=== PATIENT | female | born 1990 | race African-American/Black ===

== ENCOUNTER 2016-09-09 16:43 | Inpatient (IN) | payer OTHER ==
[2016-09-09] MEDS ORDERED: ACETAMINOPHEN 325 MG TABLET PO PRN (16:58)
[2016-09-09] MEDS ORDERED: NORMAL SALINE 250 ML IV PRN ×2 (17:04)
--- NOTE | 2016-09-09 17:14 | PDOC H&P ---
History of Present Illness Admission Date/PCP: 09/09/16 16:43 Leilani Collin anemia Patient complains of: fatigue History of Present Illness: DELORES MAGALLANES is a 25 year old female pt came yesterday with c/o feeling tired and not feeling well and pt h/h was 5.5 pt also have ongoing problem with anemia and see dr garrett out pt and dr calle pt suppose to have control for her fibroid but pt do not want when sh saw dr garrett pt also see dr calle and suppose to have iron tranfusion but pt co pay was high and pt also did not take iron tab pt denied any dizziness/no chest pain Past Medical History Hematology: Reports: Anemia Social History Smoking Status: Never Smoker Frequency of Alcohol Use: None Hx Recreational Drug Use: No Family History Family History: Reviewed & Not Pertinent Parental Family History Reviewed: Yes Children Family History Reviewed: Yes Sibling(s) Family History Reviewed.: Yes Medication/Allergy Home Medications: Polyethylene Glycol 3350 [Miralax Powder 17 gm/Packet] 1 packet PO DAILY #1 pkg 03/05/16 Review of Systems Constitutional: PRESENT: fatigue, weakness. ABSENT: chills, fever(s), headache( s), weight gain, weight loss Eyes: ABSENT: visual disturbances Ears: ABSENT: hearing changes Cardiovascular: ABSENT: chest pain, dyspnea on exertion, edema, orthropnea, palpitations Respiratory: ABSENT: cough, hemoptysis Gastrointestinal: ABSENT: abdominal pain, constipation, diarrhea, hematemesis, hematochezia, nausea, vomiting Genitourinary: PRESENT: other - heavy menstrul peroid and fibroid. ABSENT: dysuria, hematuria Musculoskeletal: ABSENT: joint swelling Integumentary: ABSENT: rash, wounds Neurological: ABSENT: abnormal gait, abnormal speech, confusion, dizziness, focal weakness, syncope Psychiatric: ABSENT: anxiety, depression, homidical ideation, suicidal ideation Endocrine: ABSENT: cold intolerance, heat intolerance, menstrual abnormalities, polydipsia, polyuria Hematologic/Lymphatic: ABSENT: easy bleeding, easy bruising, lymphadenopathy Physical Exam General appearance: PRESENT: no acute distress, well-developed, well-nourished Head exam: PRESENT: atraumatic, normocephalic Eye exam: PRESENT: conjunctiva pale, EOMI, PERRLA. ABSENT: scleral icterus Ear exam: PRESENT: normal external ear exam Mouth exam: PRESENT: moist, tongue midline Neck exam: PRESENT: full ROM. ABSENT: carotid bruit, JVD, lymphadenopathy, thyromegaly Cardiovascular exam: PRESENT: RRR. ABSENT: diastolic murmur, rubs, systolic murmur Pulses: PRESENT: normal dorsalis pedis pul, +2 pedal pulses bilateral Vascular exam: PRESENT: normal capillary refill GI/Abdominal exam: PRESENT: normal bowel sounds, soft. ABSENT: distended, guarding, mass, organolmegaly, rebound, tenderness Rectal exam: PRESENT: deferred Neurological exam: PRESENT: alert, awake, oriented to person, oriented to place , oriented to time, oriented to situation, CN II-XII grossly intact. ABSENT: motor sensory deficit Psychiatric exam: PRESENT: appropriate affect, normal mood. ABSENT: homicidal ideation, suicidal ideation Skin exam: PRESENT: dry, intact, warm. ABSENT: cyanosis, rash Assessment & Plan - Diagnosis (1) Anemia Qualifiers: Anemia type: iron deficiency Iron deficiency anemia type: chronic blood loss Qualified Code(s): D50.0 - Iron deficiency anemia secondary to blood loss (chronic) Is this a current diagnosis for this admission?: YesPlan: admit pt in [facility] d/w pt and faimily and agree for blood tranfusion consulr dr calle for furhter evaution (2) Fatigue Is this a current diagnosis for this admission?: YesPlan: from severe anemia (3) Uterine fibroid Qualifiers: Uterine leiomyoma location: unspecified location Qualified Code(s): D25.9 - Leiomyoma of uterus, unspecified Is this a current diagnosis for this admission?: YesPlan: consult motion picture film examiner - Time Time Spent: 30 to 50 Minutes Medications reviewed and adjusted accordingly: Yes Anticipated discharge: Home Within: within 24 hours - Inpatient Certification Medical Necessity: Failure to Improve With Outpatient Therapy, Other - Plan Summary Plan Summary: admit in [facility] blood /iron tranfusion
[2016-09-09 18:15] LABS: HEMATOCRIT 20.4 % (36.0-47.0); HGB HCT DIFFERENCE -3.6; MEAN CORPUSCULAR HEMOGLOBIN 14.3 pg (27.0-33.4); MEAN CORPUSCULAR HGB CONC 27.6 g/dL (32.0-36.0); RED BLOOD COUNT 3.92 10^6/uL (3.72-5.28); RED CELL DISTRIBUTION WIDTH 20.1 % (11.5-14.0); WHITE BLOOD COUNT 2.9 10^3/uL (4.0-10.5)
[2016-09-09 18:19] LABS: ANION GAP 9 (5-19); BLOOD UREA NITROGEN 7 mg/dL (7-20); CARBON DIOXIDE 28 mmol/L (22-30); CHLORIDE 106 mmol/L (98-107); CREATININE RESULT 0.76 mg/dL (0.52-1.25); GLUCOSE 85 mg/dL (75-110); POTASSIUM 4.2 mmol/L (3.6-5.0); SODIUM 143.4 mmol/L (137-145)
[2016-09-09 18:36] LABS: BASOPHILS % (MANUAL) 1 % (0-2); EOSINOPHILS % (MANUAL) 2 % (0-6); LYMPHOCYTES % (MANUAL) 50 % (13-45); TOTAL CELLS COUNTED 100
[2016-09-09 18:39] LABS: ANISOCYTOSIS 2+; HYPOCHROMASIA 3+; MICROCYTOSIS 4+; OVALOCYTES 1+; POIKILOCYTOSIS 2+; SCHISTOCYTES SLIGHT; TEAR DROP CELLS SLIGHT; TOXIC GRANULATION SLIGHT
[2016-09-09 18:40] LABS: MEAN CORPUSCULAR VOLUME 52 fl (80-97)
[2016-09-09 18:42] LABS: HEMOGLOBIN 5.6 g/dL (12.0-15.5)
[2016-09-09 18:55] LABS: FERRITIN 3.48 ng/mL (6.2-137.0)
[2016-09-09 19:25] LABS: FOLATE 3.28 ng/mL (>2.76)
[2016-09-10 08:02] LABS: HEMATOCRIT 27.2 % (36.0-47.0); MEAN CORPUSCULAR HEMOGLOBIN 18.5 pg (27.0-33.4); RED BLOOD COUNT 4.55 10^6/uL (3.72-5.28); RED CELL DISTRIBUTION WIDTH 31.2 % (11.5-14.0); WHITE BLOOD COUNT 2.9 10^3/uL (4.0-10.5)
--- NOTE | 2016-09-10 08:23 | PDOC PROGRESS REPORT ---
Subjective Progress Note for:: 09/10/16 Subjective:: pt is doing well recived 2 unit blood nocp no sob Physical Exam Vital Signs: Temp Pulse Resp BP Pulse Ox 98.6 F 75 16 103/60 99 09/10/16 05:30 09/10/16 05:30 09/10/16 05:30 09/10/16 05:30 09/10/16 05:30 Intake & Output 09/09/16 09/10/16 09/11/16 06:59 06:59 06:59 Intake Total 600 Balance 600 Weight 54 kg General appearance: PRESENT: no acute distress, well-developed, well-nourished Head exam: PRESENT: atraumatic, normocephalic Eye exam: PRESENT: conjunctiva pale, EOMI, PERRLA. ABSENT: scleral icterus Ear exam: PRESENT: normal external ear exam Mouth exam: PRESENT: moist, tongue midline Neck exam: PRESENT: full ROM. ABSENT: carotid bruit, JVD, lymphadenopathy, thyromegaly Cardiovascular exam: PRESENT: RRR. ABSENT: diastolic murmur, rubs, systolic murmur Pulses: PRESENT: normal dorsalis pedis pul, +2 pedal pulses bilateral Vascular exam: PRESENT: normal capillary refill GI/Abdominal exam: PRESENT: normal bowel sounds, soft. ABSENT: distended, guarding, mass, organolmegaly, rebound, tenderness Rectal exam: PRESENT: deferred Neurological exam: PRESENT: alert, awake, oriented to person, oriented to place , oriented to time, oriented to situation, CN II-XII grossly intact. ABSENT: motor sensory deficit Psychiatric exam: PRESENT: appropriate affect, normal mood. ABSENT: homicidal ideation, suicidal ideation Skin exam: PRESENT: dry, intact, warm. ABSENT: cyanosis, rash Results Laboratory Results: 09/09/16 17:35 09/09/16 09/09/16 09/09/16 17:35 17:35 17:35 WBC 2.9 L RBC 3.92 Hgb 5.6 L Hct 20.4 L MCV 52 L MCH 14.3 L MCHC 27.6 L RDW 20.1 H Plt Count 128 L Seg Neutrophils % Not Reportable Lymphocytes % Not Reportable Monocytes % Not Reportable Eosinophils % Not Reportable Basophils % Not Reportable Absolute Neutrophils Not Reportable Absolute Lymphocytes Not Reportable Absolute Monocytes Not Reportable Absolute Eosinophils Not Reportable Absolute Basophils Not Reportable Retic Count (auto) 0.68 Absolute Retic 0.027 L Sodium 143.4 Potassium 4.2 Chloride 106 Carbon Dioxide 28 Anion Gap 9 BUN 7 Creatinine 0.76 Est GFR ( Amer) > 60 Est GFR (Non-Af Amer) > 60 Glucose 85 Calcium 9.0 Iron 14 L TIBC 442 % Saturation 3 Ferritin 3.48 L Vitamin B12 225.0 L Folate 3.28 Blood Type A POSITIVE Antibody Screen NEGATIVE Assessment & Plan - Diagnosis (1) Anemia Qualifiers: Anemia type: iron deficiency Iron deficiency anemia type: chronic blood loss Qualified Code(s): D50.0 - Iron deficiency anemia secondary to blood loss (chronic) Is this a current diagnosis for this admission?: YesPlan: s/p blood tranfusion f/u with dr calle (2) Fatigue Is this a current diagnosis for this admission?: YesPlan: from severe anemia (3) Uterine fibroid Qualifiers: Uterine leiomyoma location: unspecified location Qualified Code(s): D25.9 - Leiomyoma of uterus, unspecified Is this a current diagnosis for this admission?: YesPlan: consult obstetrician gynecologist - Time Time Spent with patient: Less than 15 minutes Medications reviewed and adjusted accordingly: Yes Anticipated discharge: Home Within: within 24 hours - Inpatient Certification Medical Necessity: Failure to Improve With Outpatient Therapy
[2016-09-10 08:36] LABS: HEMOGLOBIN 8.4 g/dL (12.0-15.5); MEAN CORPUSCULAR VOLUME 60 fl (80-97)
[2016-09-10 08:41] LABS: BASOPHILS % (MANUAL) 0 % (0-2); EOSINOPHILS % (MANUAL) 0 % (0-6); LYMPHOCYTES % (MANUAL) 38 % (13-45); NUCLEATED RED BLOOD CELLS 1 /100 WBC (0); TOTAL CELLS COUNTED 100
[2016-09-10 08:42] LABS: ANISOCYTOSIS 4+; HYPOCHROMASIA 3+; MICROCYTOSIS 4+; OVALOCYTES 1+; POIKILOCYTOSIS 1+; POLYCHROMASIA SLIGHT; ROULEAUX SLIGHT; SCHISTOCYTES SLIGHT; TOXIC GRANULATION SLIGHT
--- NOTE | 2016-09-10 08:56 | PDOC CONSULTATION ---
Consultation Consult Date: 09/10/16 Attending physician:: LUC OWUSU Consult reason:: Anemia History of Present Illness Admission Date/PCP: 09/09/16 16:58 Leilani Polanco Patient complains of: Weakness, shortness of breath, anemia History of Present Illness: 25-year-old female who was seen as an outpatient, does have history of severe iron and B12 deficiency, secondary to fibroids and heavy menses, she comes in with hemoglobin of 5.6, severely symptomatically. CT units of packed red blood cells, she also had iron and B-12 testing, saturation was able to be calculated , ferritin was 3, B12 level was low at 200, she feels better today. She still has considerable fatigue. Past Medical History Hematology: Reports: Anemia Social History Smoking Status: Unknown if Ever Smoked Frequency of Alcohol Use: None Hx Recreational Drug Use: No Drugs: None Family History Family History: Reviewed & Not Pertinent Parental Family History Reviewed: Yes Children Family History Reviewed: Yes Sibling(s) Family History Reviewed.: Yes Medication/Allergy Home Medications: Polyethylene Glycol 3350 [Miralax Powder 17 gm/Packet] 1 packet PO DAILY #1 pkg 03/05/16 Allergies/Adverse Reactions: latex Allergy (Verified 09/09/16 17:40) IV contrast Allergy (Intermediate, Uncoded 09/09/16 17:41) Tachycardia Review of Systems Constitutional: PRESENT: fatigue Cardiovascular: PRESENT: chest pain, dyspnea on exertion, palpitations Gastrointestinal: ABSENT: abdominal pain, constipation, diarrhea, hematemesis, hematochezia, nausea, vomiting Musculoskeletal: ABSENT: joint swelling Neurological: ABSENT: abnormal gait, abnormal speech, confusion, dizziness, focal weakness, syncope Physical Exam Vital Signs: Temp Pulse Resp BP Pulse Ox 98.6 F 75 16 103/60 99 09/10/16 05:30 09/10/16 05:30 09/10/16 05:30 09/10/16 05:30 09/10/16 05:30 Intake & Output 09/09/16 09/10/16 09/11/16 06:59 06:59 06:59 Intake Total 850 Balance 850 Weight 54 kg General appearance: PRESENT: no acute distress, well-developed, well-nourished Head exam: PRESENT: atraumatic, normocephalic Eye exam: PRESENT: conjunctiva pink, EOMI, PERRLA. ABSENT: scleral icterus Ear exam: PRESENT: normal external ear exam Mouth exam: PRESENT: moist, tongue midline Neck exam: ABSENT: carotid bruit, JVD, lymphadenopathy, thyromegaly Respiratory exam: PRESENT: clear to auscultation maribeth. ABSENT: rales, rhonchi, wheezes Cardiovascular exam: PRESENT: RRR. ABSENT: diastolic murmur, rubs, systolic murmur Pulses: PRESENT: normal dorsalis pedis pul Vascular exam: PRESENT: normal capillary refill GI/Abdominal exam: PRESENT: normal bowel sounds, soft. ABSENT: distended, guarding, mass, organolmegaly, rebound, tenderness Rectal exam: PRESENT: deferred Extremities exam: PRESENT: full ROM. ABSENT: calf tenderness, clubbing, pedal edema Neurological exam: PRESENT: alert, awake, oriented to person, oriented to place , oriented to time, oriented to situation, CN II-XII grossly intact. ABSENT: motor sensory deficit Psychiatric exam: PRESENT: appropriate affect, normal mood. ABSENT: homicidal ideation, suicidal ideation Skin exam: PRESENT: dry, intact, warm. ABSENT: cyanosis, rash Results Laboratory Results: 09/10/16 07:52 09/09/16 17:35 09/09/16 09/09/16 09/09/16 17:35 17:35 17:35 WBC 2.9 L RBC 3.92 Hgb 5.6 L Hct 20.4 L MCV 52 L MCH 14.3 L MCHC 27.6 L RDW 20.1 H Plt Count 128 L Seg Neutrophils % Not Reportable Lymphocytes % Not Reportable Monocytes % Not Reportable Eosinophils % Not Reportable Basophils % Not Reportable Absolute Neutrophils Not Reportable Absolute Lymphocytes Not Reportable Absolute Monocytes Not Reportable Absolute Eosinophils Not Reportable Absolute Basophils Not Reportable Retic Count (auto) 0.68 Absolute Retic 0.027 L Sodium 143.4 Potassium 4.2 Chloride 106 Carbon Dioxide 28 Anion Gap 9 BUN 7 Creatinine 0.76 Est GFR ( Amer) > 60 Est GFR (Non-Af Amer) > 60 Glucose 85 Calcium 9.0 Iron 14 L TIBC 442 % Saturation 3 Ferritin 3.48 L Vitamin B12 225.0 L Folate 3.28 Blood Type A POSITIVE Antibody Screen NEGATIVE 09/10/16 07:52 WBC 2.9 L RBC 4.55 Hgb 8.4 L D Hct 27.2 L MCV 60 L D MCH 18.5 L MCHC 31.0 L RDW 31.2 H Plt Count 103 L Seg Neutrophils % Not Reportable Lymphocytes % Not Reportable Monocytes % Not Reportable Eosinophils % Not Reportable Basophils % Not Reportable Absolute Neutrophils Not Reportable Absolute Lymphocytes Not Reportable Absolute Monocytes Not Reportable Absolute Eosinophils Not Reportable Absolute Basophils Not Reportable Retic Count (auto) Absolute Retic Sodium Potassium Chloride Carbon Dioxide Anion Gap BUN Creatinine Est GFR ( Amer) Est GFR (Non-Af Amer) Glucose Calcium Iron TIBC % Saturation Ferritin Vitamin B12 Folate Blood Type Antibody Screen Assessment & Plan - Diagnosis (1) Anemia Qualifiers: Anemia type: iron deficiency Iron deficiency anemia type: chronic blood loss Qualified Code(s): D50.0 - Iron deficiency anemia secondary to blood loss (chronic) Is this a current diagnosis for this admission?: YesPlan: Iron deficiency secondary to have heavy menses, IV iron plan today, await CBC, we will discuss further whether transfusion needed. (2) B12 deficiency anemia Qualifiers: Vitamin B12 deficiency anemia type: other dietary B12 deficiency Qualified Code(s): D51.3 - Other dietary vitamin B12 deficiency anemia Plan: Plan for B12 supplementation, we'll need IM shots. - Time Time Spent: 50 to 70 Minutes Critical Time spent with patient: 15-24 minutes - Inpatient Certification Based on my medical assessment, after consideration of the patient's comorbidities, presenting symptoms, or acuity I expect that the services needed warrant INPATIENT care.: Yes I certify that my determination is in accordance with my understanding of Medicare's requirements for reasonable and necessary INPATIENT services [42 CFR 412.3e].: Yes Medical Necessity: Failure to Improve With Outpatient Therapy, Other - Need for blood
[2016-09-10] MEDS ORDERED: FERUMOXYTOL (NON-ESRD) 510 MG/NS 100 ML IV ONE ×2 (10:00)
[2016-09-10] MEDS ORDERED: CYANOCOBALAMIN (VITAMIN B-12) INJ 1000 MCG/1 ML VIAL IM ONE (10:30)
[2016-09-11 07:46] LABS: ABSOLUTE MONOCYTES (AUTO) 0.3 10^3/uL (0.1-1.4); ABSOLUTE NEUT (AUTO) 1.2 10^3/uL (1.7-8.2); BASOPHILS % (AUTO) 0.8 % (0-2); EOSINOPHILS % (AUTO) 0.9 % (0-6); HEMATOCRIT 27.5 % (36.0-47.0); HEMOGLOBIN 8.5 g/dL (12.0-15.5); LYMPHOCYTES % (AUTO) 56.8 % (13-45); MEAN CORPUSCULAR HEMOGLOBIN 18.4 pg (27.0-33.4); MEAN CORPUSCULAR HGB CONC 30.9 g/dL (32.0-36.0); MEAN CORPUSCULAR VOLUME 60 fl (80-97); MONOCYTES % (AUTO) 7.1 % (3-13); RED BLOOD COUNT 4.62 10^6/uL (3.72-5.28); RED CELL DISTRIBUTION WIDTH 31.9 % (11.5-14.0); SEGMENTED NEUTROPHILS % (AUTO) 34.4 % (42-78); WHITE BLOOD COUNT 3.5 10^3/uL (4.0-10.5)
--- NOTE | 2016-09-11 08:19 | PDOC DISCHARGE SUMMARY ---
General - Admit/Disc Date/PCP Admission Date/Primary Care Provider: 09/09/16 16:58 Leilani Polanco Discharge Date: 09/11/16 - Discharge Diagnosis (1) Anemia Is this a current diagnosis for this admission?: YesSummary: Most likely from the uterine fibroids. This post blood transfusion and iron transfusions. 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 - Additional Information Discharge Diet: Regular Discharge Activity: Activity As Tolerated History of Present Illness History of Present Illness: DELORES MAGALLANES is a 25 year old female pt came yesterday with c/o feeling tired and not feeling well and pt h/h was 5.5 pt also have ongoing problem with anemia and see dr garrett out pt and dr calle pt suppose to have control for her fibroid but pt do not want when sh saw dr garrett pt also see dr calle and suppose to have iron tranfusion but pt co pay was high and pt also did not take iron tab pt denied any dizziness/no chest pain Hospital Course Hospital Course: This is a 25-year-old females with the ongoing problem with the anemia due to the most likely a uterine fibroid and currently see Dr. Beal outpatient center but unable to take any oral contraceptive pills due to the patient's wounds to conceive and the patient's continues to bleed very heavily her menstrual period. Is also see the seat cover maker as outpatient and unable to get the iron transfusions due to the high co-pay should also see andres Hendrickson is outpatients and most likely a problem coming from the uterine fibroid. Patient' s admitting in the hospital because of hemoglobin was 5.5 and patient received 2 units of blood and also iron transfusions and seen by the seat cover maker. Is feeling much better and patient's walk around the hallway and by mouth intake is good patient's discharge home with the stable condition and follow as outpatients with the seat cover maker and account general manager and continues to take the iron tablets Physical Exam Vital Signs: Temp Pulse Resp BP Pulse Ox 97.8 F 67 17 105/46 L 100 09/11/16 04:27 09/11/16 04:27 09/11/16 04:27 09/11/16 04:27 09/11/16 04:27 Intake & Output 09/10/16 09/11/16 09/12/16 06:59 06:59 06:59 Intake Total 850 720 Balance 850 720 Weight 54 kg 55.4 kg General appearance: PRESENT: no acute distress, well-developed, well-nourished Head exam: PRESENT: atraumatic, normocephalic Eye exam: PRESENT: conjunctiva pink, EOMI, PERRLA. ABSENT: scleral icterus Ear exam: PRESENT: normal external ear exam Mouth exam: PRESENT: moist, tongue midline Neck exam: PRESENT: full ROM. ABSENT: carotid bruit, JVD, lymphadenopathy, thyromegaly Cardiovascular exam: PRESENT: RRR. ABSENT: diastolic murmur, rubs, systolic murmur Pulses: PRESENT: normal dorsalis pedis pul, +2 pedal pulses bilateral Vascular exam: PRESENT: normal capillary refill GI/Abdominal exam: PRESENT: normal bowel sounds, soft. ABSENT: distended, guarding, mass, organolmegaly, rebound, tenderness Rectal exam: PRESENT: deferred Neurological exam: PRESENT: alert, awake, oriented to person, oriented to place , oriented to time, oriented to situation, CN II-XII grossly intact. ABSENT: motor sensory deficit Psychiatric exam: PRESENT: appropriate affect, normal mood. ABSENT: homicidal ideation, suicidal ideation Skin exam: PRESENT: dry, intact, warm. ABSENT: cyanosis, rash Results Laboratory Results: 09/09/16 17:35 09/09/16 09/10/16 17:35 07:52 WBC 2.9 L 2.9 L RBC 3.92 4.55 Hgb 5.6 L 8.4 L D Hct 20.4 L 27.2 L MCV 52 L 60 L D MCH 14.3 L 18.5 L MCHC 27.6 L 31.0 L RDW 20.1 H 31.2 H Plt Count 128 L 103 L Seg Neutrophils % Not Reportable Lymphocytes % Not Reportable Monocytes % Not Reportable Eosinophils % Not Reportable Basophils % Not Reportable Absolute Neutrophils Not Reportable Absolute Lymphocytes Not Reportable Absolute Monocytes Not Reportable Absolute Eosinophils Not Reportable Absolute Basophils Not Reportable Retic Count (auto) 0.68 Absolute Retic 0.027 L Plan Time Spent: Less than 30 Minutes - Continues to take iron tablets and follow outpatients Dr. Beal and follow dr calle Discussed with the patient and the family about all plan and agree
[2016-09-11 08:28] LABS: ANISOCYTOSIS 4+; HYPOCHROMASIA 2+; MICROCYTOSIS 4+; OVALOCYTES 2+; POIKILOCYTOSIS 2+; SCHISTOCYTES SLIGHT; TARGET CELLS SLIGHT
--- NOTE | 2016-09-11 08:38 | PDOC PROGRESS REPORT ---
Subjective Progress Note for:: 09/11/16 Subjective:: Patient feeling a lot better today Physical Exam Vital Signs: Temp Pulse Resp BP Pulse Ox 97.8 F 67 17 105/46 L 100 09/11/16 04:27 09/11/16 04:27 09/11/16 04:27 09/11/16 04:27 09/11/16 04:27 Intake & Output 09/10/16 09/11/16 09/12/16 06:59 06:59 06:59 Intake Total 850 720 Balance 850 720 Weight 54 kg 55.4 kg General appearance: PRESENT: no acute distress, well-developed, well-nourished Head exam: PRESENT: atraumatic, normocephalic Eye exam: PRESENT: conjunctiva pink, EOMI, PERRLA. ABSENT: scleral icterus Ear exam: PRESENT: normal external ear exam Mouth exam: PRESENT: moist, tongue midline Neck exam: ABSENT: carotid bruit, JVD, lymphadenopathy, thyromegaly Respiratory exam: PRESENT: clear to auscultation maribeth. ABSENT: rales, rhonchi, wheezes Cardiovascular exam: PRESENT: RRR. ABSENT: diastolic murmur, rubs, systolic murmur Pulses: PRESENT: normal dorsalis pedis pul Vascular exam: PRESENT: normal capillary refill GI/Abdominal exam: PRESENT: normal bowel sounds, soft. ABSENT: distended, guarding, mass, organolmegaly, rebound, tenderness Rectal exam: PRESENT: deferred Extremities exam: PRESENT: full ROM. ABSENT: calf tenderness, clubbing, pedal edema Neurological exam: PRESENT: alert, awake, oriented to person, oriented to place , oriented to time, oriented to situation, CN II-XII grossly intact. ABSENT: motor sensory deficit Psychiatric exam: PRESENT: appropriate affect, normal mood. ABSENT: homicidal ideation, suicidal ideation Skin exam: PRESENT: dry, intact, warm. ABSENT: cyanosis, rash Results Laboratory Results: 09/11/16 07:08 09/09/16 17:35 09/09/16 09/10/16 09/11/16 17:35 07:52 07:08 WBC 2.9 L 2.9 L 3.5 L RBC 3.92 4.55 4.62 Hgb 5.6 L 8.4 L D 8.5 L Hct 20.4 L 27.2 L 27.5 L MCV 52 L 60 L D 60 L MCH 14.3 L 18.5 L 18.4 L MCHC 27.6 L 31.0 L 30.9 L RDW 20.1 H 31.2 H 31.9 H Plt Count 128 L 103 L 103 L Seg Neutrophils % Not Reportable 34.4 L Lymphocytes % Not Reportable 56.8 H Monocytes % Not Reportable 7.1 Eosinophils % Not Reportable 0.9 Basophils % Not Reportable 0.8 Absolute Neutrophils Not Reportable 1.2 L Absolute Lymphocytes Not Reportable 2.0 Absolute Monocytes Not Reportable 0.3 Absolute Eosinophils Not Reportable 0.0 Absolute Basophils Not Reportable 0.0 Retic Count (auto) 0.68 Absolute Retic 0.027 L Assessment & Plan - Diagnosis (1) Anemia Qualifiers: Anemia type: iron deficiency Iron deficiency anemia type: chronic blood loss Qualified Code(s): D50.0 - Iron deficiency anemia secondary to blood loss (chronic) Is this a current diagnosis for this admission?: YesPlan: Secondary to iron and B12 deficiency, today we had a long discussion greater than 30 minutes about her current status of disease and next steps of care (2) B12 deficiency anemia Qualifiers: Vitamin B12 deficiency anemia type: other dietary B12 deficiency Qualified Code(s): D51.3 - Other dietary vitamin B12 deficiency anemia - Time Time Spent with patient: 25-34 minutes Critical Time spent with patient: 25-34 minutes Anticipated discharge: Home
[2016-09-11 09:26] VITALS: BP 103/60
[2016-09-11] MEDS ORDERED: CYANOCOBALAMIN (VITAMIN B-12) INJ 1000 MCG/1 ML VIAL IM SCH (10:00)
== END 2016-09-11 10:10 | disposition home or self-care (01) | DRG 812 ==
LOC: 2S 16:43 → UNDOADMIN 16:43 → 2S 16:52 → 2N 16:52
PROVIDERS: ADMIT Family Medicine; ATTEND Family Medicine
PROC: 30233N1 Transfusion of Nonautologous Red Blood Cells into Peripheral Vein, Percutaneous Approach (ICD-10-PCS; principal; 2016-09-10)
DX: D50.0 Iron deficiency anemia secondary to blood loss (chronic) (principal); D51.9 Vitamin B12 deficiency anemia, unspecified; N92.0 Excessive and frequent menstruation with regular cycle; R53.83 Other fatigue; D25.9 Leiomyoma of uterus, unspecified; Z91.041 Radiographic dye allergy status; Z91.040 Latex allergy status
CPT/HCPCS: 36415; 36430; 80048; 82607; 82728; 82746; 83540; 83550; 84466; 85025; 85045; 86850; 86900; 86901; 86920; J3420; P9016; Q0138

== ENCOUNTER 2016-12-24 09:02 | Outpatient (CLI) | payer OTHER ==
[~2016-12-24 09:02] MED LIST: FERRIC CARBOXYMALTOSE 750 MG in NORMAL SALINE 250 ML IV PRN; NORMAL SALINE 250 ML IV PRN
[2016-12-24 09:26] VITALS: BP 100/60
== END 2016-12-24 10:09 | disposition home or self-care (01) ==
LOC: II 09:02 → 5TH 09:03 → II 10:09
PROVIDERS: ATTEND Internal Medicine
PROC: 3E033GC Introduction of Other Therapeutic Substance into Peripheral Vein, Percutaneous Approach (ICD-10-PCS; principal; 2016-12-24)
DX: D50.8 Other iron deficiency anemias (principal); K90.9 Intestinal malabsorption, unspecified
CPT/HCPCS: 96365; J7050; J1439

== ENCOUNTER → 2017-01-23 | Outpatient (CLI) | payer OTHER ==
[2017-01-23 12:14] VITALS: BP 123/70
== END ==
LOC: II 11:28
PROVIDERS: ATTEND Internal Medicine
PROC: 3E043GC Introduction of Other Therapeutic Substance into Central Vein, Percutaneous Approach (ICD-10-PCS; principal; 2017-01-23)
DX: D50.8 Other iron deficiency anemias (principal); K90.9 Intestinal malabsorption, unspecified
CPT/HCPCS: 96365; J7050; J1439

== ENCOUNTER 2017-03-30 19:59 | Emergency (ER) | payer SELFPAY ==
--- NOTE | 2017-03-30 20:41 | ER Document Report ---
ED Medical Screen (RME) - General Chief Complaint: Vag Bleeding, +preg <12wks Stated Complaint: VAGINAL BLEEDING, Time Seen by Provider: 03/30/17 20:37 Notes: Patient presents with vaginal bleeding. The bleeding started tonight and is gradually slowing down. No clots. She states she believes she is about 8 weeks and has taken 2 urine tests at clinic. She has not had an ultrasound yet. This is her first . She has a history of anemia requiring transfusions. She states this is secondary to uterine fibroids. TRAVEL OUTSIDE OF THE [place] IN LAST 30 DAYS: No - Related Data Allergies/Adverse Reactions: latex Allergy (Verified 09/09/16 17:40) IV contrast Allergy (Intermediate, Uncoded 09/09/16 17:41) Tachycardia Past Medical History - General Last Menstrual Period: february 10, 2017 Renal/ Medical History: Denies: Hx Peritoneal Dialysis - Immunizations Immunizations up to date: Yes Hx Diphtheria, Pertussis, Tetanus Vaccination: Yes Physical Exam - Vital signs Vitals: Temp Pulse Resp BP Pulse Ox 97.7 F 68 16 172/72 H 99 03/30/17 20:22 03/30/17 20:22 03/30/17 20:22 03/30/17 20:22 03/30/17 20:22 Course - Vital Signs Vital signs: Temp Pulse Resp BP Pulse Ox 97.7 F 68 16 172/72 H 99 03/30/17 20:22 03/30/17 20:22 03/30/17 20:22 03/30/17 20:22 03/30/17 20:22
--- NOTE | 2017-03-30 21:08 | ER Document Report ---
ED GI/ - General Chief Complaint: Vag Bleeding, +preg <12wks Stated Complaint: VAGINAL BLEEDING, Time Seen by Provider: 03/30/17 20:37 Mode of Arrival: Ambulatory Information source: Patient Notes: Patient states that she is presently about 7-8 weeks and developed vaginal bleeding today. 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 Patient denies any urinary symptoms. Patient denies any pelvic pain. TRAVEL OUTSIDE OF THE [place] IN LAST 30 DAYS: No - HPI Patient complains to provider of: , Vaginal bleeding. 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 Associated symptoms: denies: Dysuria, Fever, Urinary hesitancy, Urinary frequency, Urinary retention, Urinary urgency, Vaginal discharge Exacerbated by: Denies Relieved by: Denies Recently seen / treated by doctor: No - Related Data Allergies/Adverse Reactions: latex Allergy (Verified 09/09/16 17:40) IV contrast Allergy (Intermediate, Uncoded 09/09/16 17:41) Tachycardia Past Medical History - General Information source: Patient Last Menstrual Period: february 10, 2017 - Social History Smoking Status: Never Smoker Frequency of alcohol use: None Drug Abuse: None 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 Denies: Hx Peritoneal Dialysis Surgical Hx: Negative - Immunizations Immunizations up to date: Yes Hx Diphtheria, Pertussis, Tetanus Vaccination: Yes Review of Systems - Review of Systems Constitutional: No symptoms reported. denies: Fever, Recent illness EENT: No symptoms reported Cardiovascular: No symptoms reported Respiratory: No symptoms reported. denies: Cough Gastrointestinal: No symptoms reported. denies: Abdominal pain, Vomiting Genitourinary: No symptoms reported. denies: Dysuria Female Genitourinary: , Vaginal bleeding. denies: Vaginal discharge Musculoskeletal: No symptoms reported. denies: Back pain Skin: No symptoms reported Hematologic/Lymphatic: No symptoms reported Neurological/Psychological: No symptoms reported Physical Exam - Vital signs Vitals: Temp Pulse Resp BP Pulse Ox 97.7 F 68 16 172/72 H 99 03/30/17 20:22 03/30/17 20:22 03/30/17 20:22 03/30/17 20:22 03/30/17 20:22 Interpretation: No: Hypertensive Notes: VS transcribed into computer incorrectly, initial systolic BP should be recorded as 127. - General General appearance: Appears well, Alert In distress: None - HEENT Head: Normocephalic Eyes: Normal Conjunctiva: Normal Nasal: Normal Mouth/Lips: Normal Mucous membranes: Normal Neck: Normal, Supple. No: Lymphadenopathy - Respiratory Respiratory status: No respiratory distress Chest status: Nontender Breath sounds: Normal Chest palpation: Normal - Cardiovascular Rhythm: Regular Heart sounds: S1 appreciated, S2 appreciated Murmur: No - Abdominal Inspection: Gravid female Distension: No distension Bowel sounds: Normal Tenderness: Nontender Organomegaly: No organomegaly - Back Back: Normal, Nontender. No: CVA tenderness - Extremities General upper extremity: Normal inspection, Normal ROM General lower extremity: Normal inspection, Normal ROM - Neurological Neuro grossly intact: Yes Cognition: Normal Sullivan Coma Scale Eye Opening: Spontaneous Han Coma Scale Verbal: Oriented Han Coma Scale Motor: Obeys Commands Han Coma Scale Total: 15 - Psychological Associated symptoms: Normal affect, Normal mood - Skin Skin Temperature: Warm Skin Moisture: Dry Skin Color: Normal Course - Re-evaluation Re-evalutation: 03/31/17 Patient with a known history of uterine fibroids. Discussed results of patient' s ultrasound with patient. Patient advised that she will need to follow-up with her [facility] provider for further evaluation. Discussed pelvic rest until cleared by her OB. Patient verbalized understanding. 03/31/17 late entry: Patient's initial blood pressure was erroneously entered. Patient has not been hypertensive during entire ER stay - Vital Signs Vital signs: Temp Pulse Resp BP Pulse Ox 97.7 F 68 16 118/72 99 03/30/17 20:22 03/30/17 20:22 03/30/17 20:22 03/30/17 21:23 03/30/17 20:22 - Laboratory Result Diagrams: 03/30/17 20:56 03/30/17 20:56 Laboratory results interpreted by me: 03/30/17 03/30/17 03/30/17 20:49 20:56 20:56 MCV 77 L MCH 25.7 L RDW 20.0 H BUN 5 L Beta HCG, Quant 59160.00 H Urine Blood LARGE H 03/30/17 23:23 MCV MCH RDW BUN Beta HCG, Quant Urine Blood MODERATE H Labs- Entire Visit 03/30/17 03/30/17 03/30/17 20:49 20:56 20:56 WBC 4.4 RBC 4.89 Hgb 12.6 Hct 37.7 MCV 77 L MCH 25.7 L MCHC 33.4 RDW 20.0 H Plt Count 198 Seg Neutrophils % 52.4 Lymphocytes % 40.6 Monocytes % 5.3 Eosinophils % 1.2 Basophils % 0.5 Absolute Neutrophils 2.3 Absolute Lymphocytes 1.8 Absolute Monocytes 0.2 Absolute Eosinophils 0.1 Absolute Basophils 0.0 Sodium 137.2 Potassium 4.3 Chloride 102 Carbon Dioxide 25 Anion Gap 10 BUN 5 L Creatinine 0.66 Est GFR ( Amer) > 60 Est GFR (Non-Af Amer) > 60 Glucose 83 Calcium 9.7 Total Bilirubin 0.4 Direct Bilirubin 0.3 Indirect Bilirubin Not Reportable Neonat Total Bilirubin Not Reportable AST 17 ALT 18 Alkaline Phosphatase 46 Total Protein 7.3 Albumin 4.5 Beta HCG, Quant 08824.00 H Total Beta HCG POSITIVE Urine Color YELLOW Urine Appearance CLEAR Urine pH 6.0 Ur Specific [place] 1.005 Urine Protein NEGATIVE Urine Glucose (UA) NEGATIVE Urine Ketones NEGATIVE Urine Blood LARGE H Urine Nitrite NEGATIVE Urine Bilirubin NEGATIVE Urine Urobilinogen NEGATIVE Ur Leukocyte Esterase NEGATIVE Urine WBC (Auto) 2 Urine RBC (Auto) >182 Urine Bacteria (Auto) TRACE Squamous Epi Cells Auto 1 Urine Mucus (Auto) RARE Urine Ascorbic Acid NEGATIVE Blood Type Rhogam Indicated 03/30/17 03/30/17 22:22 23:23 WBC RBC Hgb Hct MCV MCH MCHC RDW Plt Count Seg Neutrophils % Lymphocytes % Monocytes % Eosinophils % Basophils % Absolute Neutrophils Absolute Lymphocytes Absolute Monocytes Absolute Eosinophils Absolute Basophils Sodium Potassium Chloride Carbon Dioxide Anion Gap BUN Creatinine Est GFR ( Amer) Est GFR (Non-Af Amer) Glucose Calcium Total Bilirubin Direct Bilirubin Indirect Bilirubin Neonat Total Bilirubin AST ALT Alkaline Phosphatase Total Protein Albumin Beta HCG, Quant Total Beta HCG Urine Color STRAW Urine Appearance CLEAR Urine pH 6.0 Ur Specific [place] 1.004 Urine Protein NEGATIVE Urine Glucose (UA) NEGATIVE Urine Ketones NEGATIVE Urine Blood MODERATE H Urine Nitrite NEGATIVE Urine Bilirubin NEGATIVE Urine Urobilinogen NEGATIVE Ur Leukocyte Esterase NEGATIVE Urine WBC (Auto) 1 Urine RBC (Auto) 0 Urine Bacteria (Auto) Squamous Epi Cells Auto 1 Urine Mucus (Auto) Urine Ascorbic Acid NEGATIVE Blood Type A POSITIVE Rhogam Indicated RHOGAM NOT INDICATED - Diagnostic Test Radiology reviewed: Reports reviewed Discharge - Discharge Clinical Impression: Vagina bleeding Uterine fibroid Qualifiers: Uterine leiomyoma location: unspecified location Qualified Code(s): D25.9 - Leiomyoma of uterus, unspecified Qualifiers: Weeks of gestation: less than 8 weeks Qualified Code(s): Z3A.01 - Less than 8 weeks gestation of Condition: Stable Disposition: HOME, SELF-CARE Instructions: Bleeding During Early ([facility]), Nitrofurantoin ([facility]), Urinary Tract Infection ([facility]) Additional Instructions: Return immediately for any new or worsening symptoms Followup with your primary care provider, call tomorrow to make a followup appointment Pelvic rest until cleared by your [facility] Follow-up with your [facility], call tomorrow for an appointment Prescriptions: Nitrofurantoin/Nitrofuran Mac [Macrobid 100 mg Capsule] 100 mg PO BID #6 capsule Referrals: LUC OWUSU MD [Primary Care Provider] - Follow up as needed EMMA QUIROZ MD [EMERITUS] - Follow up tomorrow
[2017-03-30 21:09] LABS: ABSOLUTE EOSINOPHILS # (AUTO) 0.1 10^3/uL (0.0-0.6); ABSOLUTE LYMPHOCYTES (AUTO) 1.8 10^3/uL (0.5-4.7); ABSOLUTE MONOCYTES (AUTO) 0.2 10^3/uL (0.1-1.4); ABSOLUTE NEUT (AUTO) 2.3 10^3/uL (1.7-8.2); BASOPHILS % (AUTO) 0.5 % (0-2); EOSINOPHILS % (AUTO) 1.2 % (0-6); HEMATOCRIT 37.7 % (36.0-47.0); HEMOGLOBIN 12.6 g/dL (12.0-15.5); HGB HCT DIFFERENCE 0.1; LYMPHOCYTES % (AUTO) 40.6 % (13-45); MEAN CORPUSCULAR HEMOGLOBIN 25.7 pg (27.0-33.4); MEAN CORPUSCULAR HGB CONC 33.4 g/dL (32.0-36.0); MEAN CORPUSCULAR VOLUME 77 fl (80-97); MONOCYTES % (AUTO) 5.3 % (3-13); RED BLOOD COUNT 4.89 10^6/uL (3.72-5.28); SEGMENTED NEUTROPHILS % (AUTO) 52.4 % (42-78); WHITE BLOOD COUNT 4.4 10^3/uL (4.0-10.5)
[2017-03-30 21:23] VITALS: BP 118/72
[2017-03-30 21:23] LABS: APPEARANCE,URINE CLEAR; BILIRUBIN,URINE NEGATIVE (NEGATIVE); GLUCOSE, URINE NEGATIVE (NEGATIVE); KETONES,URINE NEGATIVE (NEGATIVE); LEUKOCYTE ESTERASE,URINE NEGATIVE (NEGATIVE); NITRITE,URINE NEGATIVE (NEGATIVE); PROTEIN,URINE NEGATIVE (NEGATIVE); URINE SPECIFIC GRAVITY 1.005; UROBILINOGEN,URINE NEGATIVE mg/dL (<2.0)
[2017-03-30 21:26] LABS: ALANINE AMINOTRANSFERASE 18 U/L (9-52); ALBUMIN 4.5 g/dL (3.5-5.0); ALKALINE PHOSPHATASE 46 U/L (38-126); ANION GAP 10 (5-19); ASPARTATE AMINO TRANSFERASE 17 U/L (14-36); BILIRUBIN,DIRECT 0.3 mg/dL (0.0-0.4); BILIRUBIN,TOTAL 0.4 mg/dL (0.2-1.3); BLOOD UREA NITROGEN 5 mg/dL (7-20); CALCIUM 9.7 mg/dL (8.4-10.2); CARBON DIOXIDE 25 mmol/L (22-30); CHLORIDE 102 mmol/L (98-107); CREATININE RESULT 0.66 mg/dL (0.52-1.25); GLUCOSE 83 mg/dL (75-110); POTASSIUM 4.3 mmol/L (3.6-5.0); SODIUM 137.2 mmol/L (137-145); TOTAL PROTEIN 7.3 g/dL (6.3-8.2)
--- NOTE | 2017-03-30 23:29 | RADIOLOGY REPORT (SQ) ---
EXAM DESCRIPTION: U/S OB TRANSVAGINAL W/O DOP COMPLETED DATE/TIME: 03/30/2017 11:07 pm REASON FOR STUDY: bleeding/preg COMPARISON: None. TECHNIQUE: Transvaginal and transabdominal static and realtime grayscale images acquired of the pelv is. Additional selected spectral and color Doppler images recorded. All images stored on PACs. bHC,282 LIMITATIONS: None. FINDINGS: FETUS: Living intrauterine . EGA: 6 weeks 4 days PALOMO: 11/19/2017 FHR: 130 beats per minute. SUBCHORIONIC BLEED: Possible SIZE OF BLEED: 5.6 x 7.3 x 3.6 cm heterogeneous area adjacent to the gestational sac. Differential i s unusual fibroid versus subchorionic hemorrhage. UTERUS: Fibroids. The largest is 8.9 cm. A seconds measures 5.5 cm. CERVICAL LENGTH: 3 cm Closed. RIGHT ADNEXA: Normal ovary with normal vascular flow. No adnexal free fluid. No adnexal masses. LEFT ADNEXA: Normal ovary with normal vascular flow. No adnexal free fluid. No adnexal masses. FREE FLUID: None. OTHER: No other significant finding. IMPRESSION: LIVING INTRAUTERINE . EGA 6 weeks 4 days Multiple fibroids in the uterus. Possible subchorionic hemorrhage versus heterogeneous fibroid. Trimester of : First - 0 to 13 weeks. TECHNICAL DOCUMENTATION: JOB ID: [id number] [employer]- All Rights Reserved
[2017-03-30 23:34] LABS: APPEARANCE,URINE CLEAR; BILIRUBIN,URINE NEGATIVE (NEGATIVE); GLUCOSE, URINE NEGATIVE (NEGATIVE); KETONES,URINE NEGATIVE (NEGATIVE); LEUKOCYTE ESTERASE,URINE NEGATIVE (NEGATIVE); NITRITE,URINE NEGATIVE (NEGATIVE); PROTEIN,URINE NEGATIVE (NEGATIVE); URINE SPECIFIC GRAVITY 1.004; UROBILINOGEN,URINE NEGATIVE mg/dL (<2.0)
[2017-03-31] MEDS ORDERED: NITROFURANTOIN MONOHYD/M-CRYST 100 MG CAPSULE PO ONE (00:14)
== END 2017-03-31 00:35 | disposition home or self-care (01) ==
LOC: ER 19:59
DX: O20.9 Hemorrhage in early pregnancy, unspecified (principal); O34.11 Maternal care for benign tumor of corpus uteri, first trimester; D25.9 Leiomyoma of uterus, unspecified; Z3A.01 Less than 8 weeks gestation of pregnancy; Z91.040 Latex allergy status; Z91.041 Radiographic dye allergy status
CPT/HCPCS: 36415; 76817; 80053; 81001; 84702; 85025; 86900; 86901; 87086; 99284

== ENCOUNTER 2017-04-07 02:37 | Emergency (ER) | payer OTHER ==
--- NOTE | 2017-04-07 03:11 | ER Document Report ---
ED GI/ - General Chief Complaint: Vag Bleeding, +preg <12wks Stated Complaint: VAGINAL BLEEDING/CRAMPING Time Seen by Provider: 04/07/17 02:59 Notes: 26-year-old female, at 7.5 weeks gestation by first trimester ultrasound, the comes emergency department for chief complaint of abdominal pain, cramping, and vaginal bleeding with passage of clots this evening. 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 She denies vomiting, fever, abnormal vaginal discharge. She denies any daily medications or medical history. TRAVEL OUTSIDE OF THE [place] IN LAST 30 DAYS: No - Related Data Allergies/Adverse Reactions: latex Allergy (Verified 09/09/16 17:40) IV contrast Allergy (Intermediate, Uncoded 09/09/16 17:41) Tachycardia Past Medical History - General Information source: Patient - Social History Smoking Status: Never Smoker Frequency of alcohol use: None Drug Abuse: None Lives with: Family Family History: Reviewed & Not Pertinent - Medical History Medical History: Negative Renal/ Medical History: Denies: Hx Peritoneal Dialysis Surgical Hx: Negative - Immunizations Immunizations up to date: Yes Hx Diphtheria, Pertussis, Tetanus Vaccination: Yes Review of Systems - Review of Systems Constitutional: No symptoms reported EENT: No symptoms reported Cardiovascular: No symptoms reported Respiratory: No symptoms reported Gastrointestinal: No symptoms reported Genitourinary: No symptoms reported Female Genitourinary: See HPI Musculoskeletal: No symptoms reported Skin: No symptoms reported Hematologic/Lymphatic: No symptoms reported Neurological/Psychological: No symptoms reported Physical Exam - Vital signs Vitals: Temp Pulse Resp BP Pulse Ox 99.3 F 80 18 125/75 97 04/07/17 02:38 04/07/17 02:38 04/07/17 02:38 04/07/17 02:38 04/07/17 02:38 Interpretation: Normal - General General appearance: Appears well, Alert In distress: None - HEENT Head: Normocephalic, Atraumatic Eyes: Normal Conjunctiva: Normal Extraocular movements intact: Yes Eyelashes: Normal Pupils: PERRL Nasal: Normal Mouth/Lips: Normal Mucous membranes: Normal Pharynx: Normal Neck: Normal - Respiratory Respiratory status: No respiratory distress Chest status: Nontender Breath sounds: Normal. No: Decreased air movement, Wheezing Chest palpation: Normal - Cardiovascular Rhythm: Regular. No: Tachycardia Heart sounds: Normal auscultation, S1 appreciated, S2 appreciated Murmur: No - Abdominal Inspection: Normal Distension: No distension Bowel sounds: Normal Tenderness: Nontender. No: Tender, Guarding Organomegaly: No organomegaly - Back Back: Normal, Nontender. No: Tender - Extremities General upper extremity: Normal inspection, Nontender, Normal strength, Normal temperature General lower extremity: Normal inspection, Nontender, Normal strength, Normal temperature - Neurological Neuro grossly intact: Yes Cognition: Normal Orientation: AAOx4 Han Coma Scale Eye Opening: Spontaneous [place] Coma Scale Verbal: Oriented Han Coma Scale Motor: Obeys Commands Han Coma Scale Total: 15 Speech: Normal Cranial nerves: Normal Cerebellar coordination: Normal Motor strength normal: LUE, RUE, LLE, RLE Additional motor exam normals: Equal luster repairer Sensory: Normal - Psychological Associated symptoms: Normal affect, Normal mood - Skin Skin Temperature: Warm Skin Moisture: Dry Skin Color: Normal Course - Re-evaluation Re-evalutation: Blood typing was checked within the past 2 weeks, showed a positive, RhoGam is not indicated. CBC shows only mild anemia with no significant change from previous, HCG elevating. No leukocytosis, tachycardia, hypotension, fever, or signs of distress. Ultrasound showing uterine fibroids, I suspect patient is bleeding from these, no evidence of subchorionic hemorrhage. No obvious abnormality otherwise. heart rate is somewhat elevated but at this time there is evidence of a living IUP with no possible interventions. Patient has a close follow-up with F[facility] MECH[facility]IC in 2 days. Patient given a copy of her report, discussed details, discussed return precautions. Patient states understanding and agreement. - Vital Signs Vital signs: Temp Pulse Resp BP Pulse Ox 98.3 F 80 18 120/72 100 04/07/17 05:00 04/07/17 05:00 04/07/17 05:00 04/07/17 05:00 04/07/17 05:00 - Laboratory Result Diagrams: 04/07/17 03:20 Laboratory results interpreted by me: 04/07/17 04/07/17 03:20 03:20 Hgb 11.8 L Hct 35.7 L MCV 76 L MCH 25.2 L RDW 19.2 H Beta HCG, Quant 38050.00 H Discharge - Discharge Clinical Impression: Vagina bleeding, Abdominal cramping Condition: Stable Disposition: HOME, SELF-CARE Additional Instructions: Your workup and examination indicates you are bleeding from fibroids in your uterus. Please begin vitamins for early development and take them daily. Follow-up with [facility] in 2 days as planned. Return to the emergency department for any concerning symptoms including severe pain, heavy bleeding, passing out, fever, or any other concerning symptoms. [facility]errals[facility] [[facility]] - 04/09/17
[2017-04-07 03:35] LABS: ABSOLUTE LYMPHOCYTES (AUTO) 1.5 10^3/uL (0.5-4.7); ABSOLUTE MONOCYTES (AUTO) 0.3 10^3/uL (0.1-1.4); ABSOLUTE NEUT (AUTO) 2.5 10^3/uL (1.7-8.2); BASOPHILS % (AUTO) 0.3 % (0-2); EOSINOPHILS % (AUTO) 0.8 % (0-6); HEMATOCRIT 35.7 % (36.0-47.0); HEMOGLOBIN 11.8 g/dL (12.0-15.5); HGB HCT DIFFERENCE -0.3; LYMPHOCYTES % (AUTO) 34.8 % (13-45); MEAN CORPUSCULAR HEMOGLOBIN 25.2 pg (27.0-33.4); MEAN CORPUSCULAR HGB CONC 33.2 g/dL (32.0-36.0); MEAN CORPUSCULAR VOLUME 76 fl (80-97); MONOCYTES % (AUTO) 6.1 % (3-13); RED BLOOD COUNT 4.71 10^6/uL (3.72-5.28); RED CELL DISTRIBUTION WIDTH 19.2 % (11.5-14.0); WHITE BLOOD COUNT 4.4 10^3/uL (4.0-10.5)
--- NOTE | 2017-04-07 04:23 | RADIOLOGY REPORT (SQ) ---
EXAM DESCRIPTION: U/S OB TRANSVAG W/DOPPLER COMPLETED DATE/TIME: 04/07/2017 4:06 am REASON FOR STUDY: pelvic pain, bleeding/clotting COMPARISON: US OB 03/30/2017. TECHNIQUE: Transvaginal static and realtime grayscale images acquired of the pelvis. Additional dominique cted color Doppler images recorded. All images stored on PACs. bHCG: Pending. LIMITATIONS: Shadowing from the uterine fibroids. FINDINGS: FETUS: Living intrauterine . EGA: 8 weeks 3 days. PALOMO: 11/14/2017 FHR: 182 beats per minute. SUBCHORIONIC BLEED: No. SIZE OF BLEED: Not applicable. UTERUS: Measures 12.7 x 12.7 x 8.1 cm. Two hypoechoic areas at the myometrium, probably representing fibroids, one measuring 9.5 x 6.7 x 9.4 cm and the other one measuring 4.5 x 3.9 x 5.1 cm. CERVICAL LENGTH: 4.2 cm. Closed. RIGHT ADNEXA: The right ovary was not visualized. LEFT ADNEXA: The left ovary was not visualized. FREE FLUID: Small amount of free pelvic fluid. IMPRESSION: LIVING INTRAUTERINE . EGA 8 WEEKS 3 DAYS. UTERINE FIBROIDS. Trimester of : First - 0 to 13 weeks. TECHNICAL DOCUMENTATION: JOB ID: [id number] [place]- All Rights Reserved
[2017-04-07 05:10] VITALS: BP 120/72
== END 2017-04-07 05:12 | disposition home or self-care (01) ==
LOC: ER 02:37
DX: O20.9 Hemorrhage in early pregnancy, unspecified (principal); R10.9 Unspecified abdominal pain; Z3A.01 Less than 8 weeks gestation of pregnancy; Z91.040 Latex allergy status
CPT/HCPCS: 36415; 76817; 84702; 85025; 93976; 99284

== ENCOUNTER 2017-04-07 21:08 | Emergency (ER) | payer OTHER ==
[2017-04-07 21:30] LABS: ABSOLUTE BASOPHILS # (AUTO) 0.1 10^3/uL (0.0-0.2); ABSOLUTE MONOCYTES (AUTO) 0.3 10^3/uL (0.1-1.4); ABSOLUTE NEUT (AUTO) 3.6 10^3/uL (1.7-8.2); BASOPHILS % (AUTO) 0.9 % (0-2); EOSINOPHILS % (AUTO) 0.7 % (0-6); HEMATOCRIT 32.7 % (36.0-47.0); HEMOGLOBIN 10.8 g/dL (12.0-15.5); HGB HCT DIFFERENCE -0.3; LYMPHOCYTES % (AUTO) 33.9 % (13-45); MEAN CORPUSCULAR HEMOGLOBIN 25.4 pg (27.0-33.4); MEAN CORPUSCULAR VOLUME 77 fl (80-97); MONOCYTES % (AUTO) 5.2 % (3-13); RED BLOOD COUNT 4.26 10^6/uL (3.72-5.28); RED CELL DISTRIBUTION WIDTH 19.1 % (11.5-14.0); SEGMENTED NEUTROPHILS % (AUTO) 59.3 % (42-78)
[2017-04-07] MEDS ORDERED: NORMAL SALINE 1000 ML 1,000 ML IV ONE ×2 (21:55)
--- NOTE | 2017-04-07 21:57 | ER Document Report ---
ED GI/ - General Chief Complaint: Vaginal Bleeding Stated Complaint: ABDOMINAL PAIN Time Seen by Provider: 04/07/17 21:45 Notes: Patient is a 26-year-old female comes emergency department for chief complaint of heavy vaginal bleeding, passage of large clots, and passage of tissue vaginally. at slightly over 8 weeks gestation. On no medications. Patient was seen by me yesterday, had a living IUP at that time which she did have an elevated heart rate and it also showed uterine fibroids. Patient was asymptomatic at time of discharge she states, she states a few hours later she started having cramping and bleeding, then bleeding became very heavy. She states she became lightheaded and thought she was going to pass out at one point. She denies any current pain. TRAVEL OUTSIDE OF THE [place] IN LAST 30 DAYS: No - Related Data Allergies/Adverse Reactions: coconut Allergy (Verified 04/07/17 21:48) latex Allergy (Verified 09/09/16 17:40) mushroom Allergy (Verified 04/07/17 21:48) IV contrast Allergy (Intermediate, Uncoded 09/09/16 17:41) Tachycardia Home Medications: Current Home Medications Pnv No.122/Iron/Folic Acid [ Multi Tablet] 1 each PO DAILY 04/07/17 [ History] Past Medical History - General Information source: Patient, Relative - Social History Smoking Status: Never Smoker Chew tobacco use (# tins/day): No Frequency of alcohol use: None Drug Abuse: None Lives with: Family Family History: Reviewed & Not Pertinent Renal/ Medical History: Denies: Hx Peritoneal Dialysis Surgical Hx: Negative - Immunizations Immunizations up to date: Yes Hx Diphtheria, Pertussis, Tetanus Vaccination: Yes Review of Systems - Review of Systems Constitutional: No symptoms reported EENT: No symptoms reported Cardiovascular: See HPI Respiratory: No symptoms reported Gastrointestinal: No symptoms reported Genitourinary: No symptoms reported Female Genitourinary: See HPI Musculoskeletal: No symptoms reported Skin: No symptoms reported Hematologic/Lymphatic: No symptoms reported Neurological/Psychological: No symptoms reported Physical Exam - Vital signs Vitals: Temp Pulse Resp BP Pulse Ox 97.4 F 107 H 18 122/76 98 04/07/17 21:15 04/07/17 21:15 04/07/17 21:15 04/07/17 21:15 04/07/17 21:15 Interpretation: Normal - General General appearance: Anxious In distress: None - HEENT Head: Normocephalic, Atraumatic Eyes: Normal Conjunctiva: Normal Extraocular movements intact: Yes Eyelashes: Normal Pupils: PERRL Nasal: Normal Mouth/Lips: Normal Mucous membranes: Normal Pharynx: Normal Neck: Normal - Respiratory Respiratory status: No respiratory distress Chest status: Nontender Breath sounds: Normal. No: Decreased air movement, Wheezing Chest palpation: Normal - Cardiovascular Rhythm: Regular, Tachycardia Heart sounds: Normal auscultation, S1 appreciated, S2 appreciated Murmur: No - Abdominal Inspection: Normal Distension: No distension Bowel sounds: Normal Tenderness: Tender - mild generalized tenderness, no guarding Organomegaly: No organomegaly - Genitourinary External exam: Normal Speculum exam: Cervix open Vaginal bleeding: Heavy - heavy bleeding with clots; tissue noted being passed and in the vaginal canal; removed from the vaginal canal on exam, able to visualze cervix which was open but no tissue lodged in it, no obvious abnormalities - Back Back: Normal, Nontender. No: Tender - Extremities General upper extremity: Normal inspection, Nontender, Normal ROM, Normal strength General lower extremity: Normal inspection, Nontender, Normal ROM, Normal strength - Neurological Neuro grossly intact: Yes Cognition: Normal Orientation: AAOx4 [place] Coma Scale Eye Opening: Spontaneous [place] Coma Scale Verbal: Oriented Han Coma Scale Motor: Obeys Commands [place] Coma Scale Total: 15 Speech: Normal Cranial nerves: Normal Cerebellar coordination: Normal Motor strength normal: LUE, RUE, LLE, RLE Additional motor exam normals: Equal track patrol Sensory: Normal - Psychological Associated symptoms: Normal affect, Normal mood - Skin Skin Temperature: Warm Skin Moisture: Dry Skin Color: Normal Course - Re-evaluation Re-evalutation: 04/07/17 22:10 Patient began to bleed heavily again on my examination, passed tissue and large amount of clots. On examination patient passed the fetus intact. Pelvic examination performed, additional tissue products were removed, there is no tissue lodged in the cervix at this time. Giving IV fluids, labs pending, will continue to monitor. She states she actually feels a lot better now, states she is not having any pain now, she states that she does not want anything for pain at this time. Discussed with Dr. Griffin. Patient given 2 liters of IVFs, tachycardia borderline now. Patient's color improved. She is well appearing now. Bleeding has significantly slowed down. Hemoglobin dropped from 11.8 to 10.8. Rhogam not indicated. HCG is downtrending as expected. Called and spoke with CARLOS Smith electronic tech. Discussed patient's visit yesterday, today, ultrasound yesterday, labs today, presentation, examination, evaluation. Recommendation that at this time if patient is hemodynamically stable she can follow-up in the office tomorrow, she is already scheduled for this appointment. Patient monitored for 2 hours more. Bleeding significantly slowed down to minimum. Tachycardia resolved. Patient stood without difficulty with a heart rate of 82 and blood pressure of 112/69. Hemodynamically stable. I discussed with patient, she states she is comfortable going home and following up with OB/ WASH OPERATOR in the office tomorrow. I did discuss return precautions in detail. Discussed with as well at bedside. They state understanding and agreement. - Vital Signs Vital signs: Temp Pulse Resp BP Pulse Ox 99.1 F 90 19 107/60 98 04/08/17 00:12 04/08/17 03:11 04/08/17 02:00 04/08/17 03:11 04/08/17 02:00 - Laboratory Result Diagrams: 04/07/17 21:15 04/07/17 21:15 Laboratory results interpreted by me: 04/07/17 04/07/17 04/07/17 21:15 21:15 21:15 Hgb 10.8 L Hct 32.7 L MCV 77 L MCH 25.4 L RDW 19.1 H Potassium 3.5 L Alkaline Phosphatase 36 L Beta HCG, Quant 03163.00 H Discharge - Discharge Clinical Impression: Miscarriage Condition: Stable Disposition: HOME, SELF-CARE Additional Instructions: You have had a miscarriage (medically called a "spontaneous "). The miscarriage occurred because the fetus did not develop normally. There is nothing you did to cause it, and nothing you could have done to prevent it. About one in four ends in miscarriage. Please go to your OBGYN appointment as planned today. I spoke with Dr. Stephon beaver. You should rest in bed for two or three days. As there is some risk of infection of the uterus, you should not have intercourse for one week (or until okayed by your physician). You might not have a period for six to eight weeks. You should not become again for at least three months -- the uterus requires time to get back to normal. If needed take 1/2 to 1 of the tablets given tonight for pain. Call the doctor or return for re-examination if there is heavy or persistent vaginal bleeding, fever, foul discharge, continued cramping pains, or abdominal pain. Referrals: LUC OWUSU MD [Primary Care Provider] - Follow up as needed
[2017-04-07 22:04] LABS: ADD ON TESTING BLD IN LAB ACKNOWLEDGE
[2017-04-07 22:21] LABS: ALANINE AMINOTRANSFERASE 19 U/L (9-52); ALBUMIN 3.8 g/dL (3.5-5.0); ALKALINE PHOSPHATASE 36 U/L (38-126); ANION GAP 10 (5-19); ASPARTATE AMINO TRANSFERASE 17 U/L (14-36); BILIRUBIN,DIRECT 0.3 mg/dL (0.0-0.4); BILIRUBIN,TOTAL 0.3 mg/dL (0.2-1.3); BLOOD UREA NITROGEN 7 mg/dL (7-20); CALCIUM 8.9 mg/dL (8.4-10.2); CARBON DIOXIDE 24 mmol/L (22-30); CHLORIDE 104 mmol/L (98-107); CREATININE RESULT 0.75 mg/dL (0.52-1.25); GLUCOSE 90 mg/dL (75-110); POTASSIUM 3.5 mmol/L (3.6-5.0); SODIUM 137.9 mmol/L (137-145); TOTAL PROTEIN 6.5 g/dL (6.3-8.2)
[2017-04-07] MEDS ORDERED: MORPHINE SULFATE 10 MG/ML INJ IV ONE (22:31)
[2017-04-07] MEDS ORDERED: ONDANSETRON HCL INJ/PF 4 MG/2 ML SDV IV ONE (22:31)
[2017-04-07] MEDS ORDERED: ACETAMINOPHEN 325 MG TABLET PO ONE (22:36)
[2017-04-07] MEDS ORDERED: ACETAMINOPHEN 325 MG TABLET ONE (22:41)
[2017-04-08] MEDS ORDERED: NORMAL SALINE 1000 ML 1,000 ML IV ONE (01:25)
[2017-04-08] MEDS ORDERED: HYDROCODONE/ACETAMINOPHEN 5-325 MG 6 TAB/DSPK PO PRN (03:32)
[2017-04-08 04:20] VITALS: BP 101/55
== END 2017-04-08 04:20 | disposition home or self-care (01) ==
LOC: ER 21:08
DX: O03.9 Complete or unspecified spontaneous abortion without complication (principal); Z91.040 Latex allergy status
CPT/HCPCS: 99284; 96374; 86900; 86901; 36415; 84702; 85025; 80053; 88305 ×2; J2405

== ENCOUNTER 2017-04-13 11:18 | Observation (INO) | payer OTHER ==
[2017-04-13] MEDS ORDERED: ACETAMINOPHEN 325 MG TABLET PO PRN (12:03)
[2017-04-13] MEDS ORDERED: PROMETHAZINE HCL 25 MG TABLET PO PRN (12:04)
[2017-04-13 12:28] LABS: HEMATOCRIT 22.8 % (36.0-47.0); HGB HCT DIFFERENCE -0.3; MEAN CORPUSCULAR HGB CONC 32.8 g/dL (32.0-36.0); MEAN CORPUSCULAR VOLUME 76 fl (80-97); RED BLOOD COUNT 2.99 10^6/uL (3.72-5.28); RED CELL DISTRIBUTION WIDTH 18.7 % (11.5-14.0); WHITE BLOOD COUNT 7.9 10^3/uL (4.0-10.5)
[2017-04-13 12:37] LABS: HEMOGLOBIN 7.5 g/dL (12.0-15.5)
[2017-04-13 12:50] LABS: ANION GAP 17 (5-19); BLOOD UREA NITROGEN 5 mg/dL (7-20); CALCIUM 9.6 mg/dL (8.4-10.2); CARBON DIOXIDE 23 mmol/L (22-30); CHLORIDE 102 mmol/L (98-107); CREATININE RESULT 0.61 mg/dL (0.52-1.25); GLUCOSE 71 mg/dL (75-110); POTASSIUM 3.6 mmol/L (3.6-5.0); SODIUM 141.7 mmol/L (137-145)
[2017-04-13] MEDS: IBUPROFEN 800 MG TABLET PO SCH ×2 (13:02→21:01)
[2017-04-14] MEDS: IBUPROFEN 800 MG TABLET PO SCH (05:02)
[2017-04-14 08:36] VITALS: BP 126/70
== END 2017-04-14 10:03 | disposition home or self-care (01) ==
LOC: 2S 11:18
PROVIDERS: ADMIT Specialist; ATTEND Specialist
PROC: 30233N1 Transfusion of Nonautologous Red Blood Cells into Peripheral Vein, Percutaneous Approach (ICD-10-PCS; principal; 2017-04-13)
DX: O03.6 Delayed or excessive hemorrhage following complete or unspecified spontaneous abortion (principal); O03.89 Complete or unspecified spontaneous abortion with other complications; R11.10 Vomiting, unspecified; R10.9 Unspecified abdominal pain; R63.0 Anorexia; R50.9 Fever, unspecified; R00.0 Tachycardia, unspecified; R19.00 Intra-abdominal and pelvic swelling, mass and lump, unspecified site; D21.9 Benign neoplasm of connective and other soft tissue, unspecified
CPT/HCPCS: 86900; 86901; 36415; 36430; 86870; 86850; 86880; 86922; 84702; 85027; 80048; 86920; G0378 ×2; G0379; P9016

== ENCOUNTER 2017-04-18 19:52 | Emergency (ER) | payer OTHER ==
--- NOTE | 2017-04-18 21:40 | ER Document Report ---
ED GI/ - General Mode of Arrival: Ambulatory Information source: Patient TRAVEL OUTSIDE OF THE [place] IN LAST 30 DAYS: No - HPI Patient complains to provider of: Abdominal pain, Pelvic pain Quality of pain: Burning, Fullness Associated symptoms: Other - see above - General Chief Complaint: Abdominal Pain Stated Complaint: ABDOMINAL PAIN Time Seen by Provider: 04/18/17 21:03 Notes: Patient is a 26 year old female who presents to the ED status post miscarriage on 04/07/2017. Patient states she has been passing tissue and clots on her own , she did not have a D&C at that time. Patient states she has had a low grade fever of 99-100 since the miscarriage and has also had some nausea and vomiting. Patient states she is having lower abdominal pain. She experiences a "stinging" and fullness feeling when she has to void. She states those symptoms are relieved when she voids. Patient is also having some low back pain. She states she has had some constipation and pain when pushing. She has had a decreased PO intake stating that it exacerbates her pain. She states today is the first day the bleeding has decreased to being less than a normal period. She denies any foul smelling discharge. (MINERVA TURNER) - Related Data Allergies/Adverse Reactions: coconut Allergy (Verified 04/18/17 19:56) latex Allergy (Verified 04/18/17 19:56) mushroom Allergy (Verified 04/18/17 19:56) IV contrast Allergy (Intermediate, Uncoded 04/18/17 19:56) Tachycardia Past Medical History - Social History Smoking Status: Never Smoker Chew tobacco use (# tins/day): No Frequency of alcohol use: None Drug Abuse: None Family History: Reviewed & Not Pertinent Renal/ Medical History: Denies: Hx Peritoneal Dialysis Psychiatric Medical History: Denies: Hx Depression - Immunizations Immunizations up to date: Yes Hx Diphtheria, Pertussis, Tetanus Vaccination: Yes Review of Systems - Review of Systems Constitutional: See HPI, Fever - 99-100 EENT: No symptoms reported Cardiovascular: No symptoms reported Respiratory: No symptoms reported Gastrointestinal: See HPI, Abdominal pain, Constipation Genitourinary: See HPI, Other - feeling of fullness and "stinging" when having to urinate Female Genitourinary: See HPI, Vaginal bleeding, Other - status post miscarriage. denies: Vaginal odor Musculoskeletal: See HPI, Back pain Skin: No symptoms reported Hematologic/Lymphatic: No symptoms reported Neurological/Psychological: No symptoms reported Physical Exam - Vital signs Vitals: Temp Pulse Resp BP Pulse Ox 99.6 F 113 H 20 127/74 H 97 04/18/17 19:56 04/18/17 19:56 04/18/17 19:56 04/18/17 19:56 04/18/17 19:56 - Notes Notes: GENERAL: Alert, interacts well. No acute distress. HEAD: Normocephalic, atraumatic. EYES: Pupils equal, round, and reactive to light. Extraocular movements intact. ENT: Oral mucosa moist, tongue midline. NECK: Full range of motion. Supple. Trachea midline. LUNGS: Clear to auscultation bilaterally, no wheezes, rales, or rhonchi. No respiratory distress. HEART: Mildly tachycardic. No murmurs, gallops, or rubs. ABDOMEN: Soft. Superpubic tenderness to palpation. Mildly distended, larger than I would expect for body habitus. No rigidity or rebound. Mild guarding. Bowel sounds present in all 4 quadrants. PELVIC: Chaperoned by ÁNGEL Pierre. Small dark red clots. No purulent discharge. No odor. BACK: no CVA tenderness to percussion EXTREMITIES: Moves all 4 extremities spontaneously. No edema. No cyanosis. NEUROLOGICAL: Alert and oriented x3. Normal speech. PSYCH: Normal affect, normal mood. SKIN: Warm, dry, normal turgor. No rashes or lesions noted. (MINERVA TURNER) Course - Re-evaluation Re-evalutation: 04/18/17 23:32 Urinalysis shows large blood, trace leukocyte esterase, only 1 squamous epithelial cell, hCG was positive but she has had a recent miscarriage and has not been sexually active since then. Pelvic examination does not reveal any evidence of endometritis. Physical examination is not consistent with endometritis. Patient will be started on antibiotics and Pyridium. Discharged home. (SALLIE CALDERON) - Vital Signs Vital signs: Temp Pulse Resp BP Pulse Ox 99.6 F 113 H 20 127/74 H 97 04/18/17 19:56 04/18/17 19:56 04/18/17 19:56 04/18/17 19:56 04/18/17 19:56 - Laboratory Laboratory results interpreted by me: 04/18/17 21:28 Urine Ketones 20 H Urine Blood LARGE H Urine Urobilinogen 2.0 H Ur Leukocyte Esterase TRACE H Urine HCG, Qual POSITIVE H Discharge - Discharge Clinical Impression: Complete miscarriage UTI (urinary tract infection) Qualifiers: Urinary tract infection type: acute cystitis Hematuria presence: with hematuria Qualified Code(s): N30.01 - Acute cystitis with hematuria Condition: Stable Disposition: HOME, SELF-CARE Additional Instructions: Urinary Tract Infection Your evaluation indicates that you have a urinary tract infection. This is due to germs growing in the bladder. This is a common problem. This infection usually responds quickly to antibiotics. Your antibiotic should be taken exactly as prescribed. Drink plenty of fluids -- three to four quarts a day. Occasionally, a bladder anesthetic will be prescribed to help stop the feeling of urgency until the antibiotic has a chance to clear the infection. This may cause your urine to be dark orange. This is Pyridium, known over the counter as AZO. Certain urine infections require a culture. If the doctor obtained a culture, the results will be back in two days. You should call to see if a change in treatment is needed. A repeat urinalysis after you finish treatment is often recommended. The physician will let you know if further testing is required. Call the doctor if you develop fever, chills, flank pain, inability to urinate, or blood in the urine. Prescriptions: Cephalexin Monohydrate [Keflex 500 mg Capsule] 500 mg PO Q6H 5 Days capsule Phenazopyridine HCl [Pyridium 200 mg Tablet] 200 mg PO TID #9 tablet Referrals: LUC OWUSU MD [Primary Care Provider] - Follow up as needed Scribe Attestation: 04/18/17 23:53 I personally performed the services described in the documentation, reviewed and edited the documentation which was dictated to the scribe in my presence, and it accurately records my words and actions. (SALLIE CALDERON) Scribe Documentation - Scribe Written by Yandel:: yandel Tenorio, 04/18/2017, [id number] acting as scribe for :: Obed
[2017-04-18 21:42] LABS: APPEARANCE,URINE SLIGHTLY-CLOUDY; BILIRUBIN,URINE NEGATIVE (NEGATIVE); GLUCOSE, URINE NEGATIVE (NEGATIVE); KETONES,URINE 20 mg/dL (NEGATIVE); LEUKOCYTE ESTERASE,URINE TRACE (NEGATIVE); NITRITE,URINE NEGATIVE (NEGATIVE); PROTEIN,URINE NEGATIVE (NEGATIVE); URINE SPECIFIC GRAVITY 1.012
[2017-04-18] MEDS ORDERED: ACETAMINOPHEN 325 MG TABLET PO ONE (23:30)
[2017-04-18] MEDS ORDERED: CEPHALEXIN 500 MG CAPSULE PO ONE (23:30)
[2017-04-18] MEDS ORDERED: PHENAZOPYRIDINE HCL 200 MG TABLET PO ONE (23:30)
[2017-04-19 00:01] VITALS: BP 121/80
== END 2017-04-18 23:59 | disposition home or self-care (01) ==
LOC: ER 19:52
DX: O03.9 Complete or unspecified spontaneous abortion without complication (principal); N30.01 Acute cystitis with hematuria; M54.5 Low back pain; R10.9 Unspecified abdominal pain; R10.2 Pelvic and perineal pain; R50.9 Fever, unspecified; K59.00 Constipation, unspecified; Z91.040 Latex allergy status; Z91.041 Radiographic dye allergy status; Z91.018 Allergy to other foods
CPT/HCPCS: 99284; 87086; 81025; 81001; J3490

== ENCOUNTER 2017-05-27 17:57 | Outpatient (CLI) | payer OTHER ==
[2017-05-27] MEDS ORDERED: NORMAL SALINE 1000 ML 1,000 ML IV PRN (19:02)
[2017-05-27] MEDS ORDERED: DIPHENHYDRAMINE HCL 25 MG CAPSULE PO PRN (19:19)
[2017-05-27] MEDS ORDERED: ACETAMINOPHEN 325 MG TABLET PO PRN (19:19)
[2017-05-27 19:53] LABS: HGB HCT DIFFERENCE -0.4; MEAN CORPUSCULAR HEMOGLOBIN 21.1 pg (27.0-33.4); MEAN CORPUSCULAR HGB CONC 32.7 g/dL (32.0-36.0); RED CELL DISTRIBUTION WIDTH 22.3 % (11.5-14.0); WHITE BLOOD COUNT 3.8 10^3/uL (4.0-10.5)
[2017-05-27 20:28] LABS: MEAN CORPUSCULAR VOLUME 65 fl (80-97)
[2017-05-27 20:30] LABS: HEMOGLOBIN 7.2 g/dL (12.0-15.5)
[2017-05-28 06:09] VITALS: BP 101/59
== END 2017-05-28 06:17 | disposition home or self-care (01) ==
LOC: LAB 17:57 → 2S 18:08 → LAB 05-28 06:17
PROVIDERS: ATTEND Specialist
PROC: 30233N1 Transfusion of Nonautologous Red Blood Cells into Peripheral Vein, Percutaneous Approach (ICD-10-PCS; principal; 2017-05-27)
PROC: 30233N1 Transfusion of Nonautologous Red Blood Cells into Peripheral Vein, Percutaneous Approach (ICD-10-PCS; 2017-05-28)
DX: Z01.83 Encounter for blood typing (principal); Z76.89 Persons encountering health services in other specified circumstances
CPT/HCPCS: 86900; 86901; 36415; 36430; 86870; 86850; 86922; 86920; 86902 ×2; P9016

== ENCOUNTER 2017-07-31 13:27 | Outpatient (CLI) | payer OTHER ==
[2017-07-31 14:13] LABS: HEMATOCRIT 29.6 % (36.0-47.0); HEMOGLOBIN 9.1 g/dL (12.0-15.5); MEAN CORPUSCULAR HEMOGLOBIN 18.9 pg (27.0-33.4); MEAN CORPUSCULAR HGB CONC 30.6 g/dL (32.0-36.0); MEAN CORPUSCULAR VOLUME 62 fl (80-97); PLATELET COUNT 331 10^3/uL (150-450); RED CELL DISTRIBUTION WIDTH 23.3 % (11.5-14.0); WHITE BLOOD COUNT 4.4 10^3/uL (4.0-10.5)
[2017-07-31] MEDS ORDERED: ACETAMINOPHEN 325 MG TABLET ONE (15:58)
[2017-07-31] MEDS ORDERED: DIPHENHYDRAMINE HCL 25 MG CAPSULE ONE (15:59)
[2017-07-31] MEDS ORDERED: ACETAMINOPHEN 325 MG TABLET PO ONE (16:30)
[2017-07-31] MEDS ORDERED: DIPHENHYDRAMINE HCL 25 MG CAPSULE PO ONE (16:30)
[2017-07-31] MEDS ORDERED: FUROSEMIDE 20 MG TABLET PO ONE (16:30)
[2017-07-31 21:25] VITALS: BP 104/41
[2017-07-31 22:13] LABS: ABSOLUTE LYMPHOCYTES (AUTO) 2.5 10^3/uL (0.5-4.7); ABSOLUTE MONOCYTES (AUTO) 0.4 10^3/uL (0.1-1.4); BASOPHILS % (AUTO) 0.4 % (0-2); EOSINOPHILS % (AUTO) 0.3 % (0-6); HEMATOCRIT 32.4 % (36.0-47.0); HEMOGLOBIN 10.2 g/dL (12.0-15.5); LYMPHOCYTES % (AUTO) 42.5 % (13-45); MEAN CORPUSCULAR HGB CONC 31.4 g/dL (32.0-36.0); MONOCYTES % (AUTO) 6.1 % (3-13); PLATELET COUNT 282 10^3/uL (150-450); RED BLOOD COUNT 5.07 10^6/uL (3.72-5.28); RED CELL DISTRIBUTION WIDTH 26.2 % (11.5-14.0); SEGMENTED NEUTROPHILS % (AUTO) 50.7 % (42-78); TOTAL CELLS COUNTED % (AUTO) 100 %
[2017-07-31 22:38] LABS: ANISOCYTOSIS 3+; BURR CELLS 1+; POIKILOCYTOSIS 3+; TOXIC GRANULATION 1+
[2017-07-31 22:39] LABS: OVALOCYTES 2+; PLATELET COMMENT ADEQUATE; PLATELET GIANT PRESENT; PLATELET LARGE PRESENT; SCHISTOCYTES 2+; TARGET CELLS 1+; TEAR DROP CELLS SLIGHT
[2017-07-31 22:49] LABS: MEAN CORPUSCULAR VOLUME 64 fl (80-97)
== END 2017-08-01 00:30 | disposition home or self-care (01) ==
LOC: 5 13:27 → II 13:27
PROVIDERS: ATTEND Family Medicine
PROC: 30233N1 Transfusion of Nonautologous Red Blood Cells into Peripheral Vein, Percutaneous Approach (ICD-10-PCS; principal; 2017-07-31)
DX: D50.9 Iron deficiency anemia, unspecified (principal); R58 Hemorrhage, not elsewhere classified
CPT/HCPCS: 86900; 86901; 36415; 36430; 86870; 86850; 86922; 85025; 86920; 86902; P9016

== ENCOUNTER 2017-08-18 09:37 | Outpatient (CLI) | payer OTHER ==
[~2017-08-18 09:37] MED LIST changes: -FERRIC CARBOXYMALTOSE 750 MG in NORMAL SALINE 250 ML IV PRN; +FERUMOXYTOL (NON-ESRD) 510 MG/NS 100 ML IV PRN
[2017-08-18 10:35] VITALS: BP 103/59
== END 2017-08-18 10:35 | disposition home or self-care (01) ==
LOC: II 09:37 → 5TH 09:38 → II 10:35
PROVIDERS: ATTEND Internal Medicine
PROC: 3E033GC Introduction of Other Therapeutic Substance into Peripheral Vein, Percutaneous Approach (ICD-10-PCS; principal; 2017-08-18)
DX: D50.8 Other iron deficiency anemias (principal); K90.9 Intestinal malabsorption, unspecified
CPT/HCPCS: 96367; Q0138; 96365

== ENCOUNTER 2017-09-16 16:04 | Emergency (ER) | payer OTHER ==
[2017-09-16 17:08] LABS: APPEARANCE,URINE SLIGHTLY-CLOUDY; BILIRUBIN,URINE NEGATIVE (NEGATIVE); COLOR,URINE YELLOW; GLUCOSE, URINE NEGATIVE (NEGATIVE); KETONES,URINE NEGATIVE (NEGATIVE); LEUKOCYTE ESTERASE,URINE TRACE (NEGATIVE); NITRITE,URINE NEGATIVE (NEGATIVE); PROTEIN,URINE NEGATIVE (NEGATIVE); URINE SPECIFIC GRAVITY 1.016
[2017-09-16] MEDS ORDERED: BUTALB/ACETAMINOPHEN/CAFFEINE 1 TAB EACH PO ONE (17:12)
--- NOTE | 2017-09-16 17:24 | ER Document Report ---
HPI - HPI Pain Level: Denies Context: Patient is a 26-year-old female who presents emergency department with a chief complaint of headache, palpitations and pelvic cramping for about 1 week. Patient states her headache is a pressure behind her left eye that improves with Tylenol but comes back with intermittent light sensitivity. She also admits to intermittent heart palpitations without any associated chest pain. States that they are fleeting and resolve on their own. Regarding her pelvic pain she admits to intermittent cramping without any abnormal vaginal bleeding, pyuria, hematuria. Last menstrual period was September 06 lasting 3 days which she says was abnormally short for her. She does have a history of uterine fibroids that she had removed in June and is been doing well since then. Also has a history of chronic anemia related to her dysfunctional uterine bleeding prior to her procedure. States that she had blood work drawn earlier this week they came back with a hemoglobin of 11. She follows with Dr. Owusu, Dr. Martinez and Dr. Beal - NEURO Neurology: REPORTS: Headache - CARDIOVASCULAR Cardiovascular: DENIES: Chest pain - "racing heart" - GASTROINTESTINAL Gastrointestinal: REPORTS: Abdominal Pain - suprapubic cramping - REPRODUCTIVE Reproductive: DENIES: : Past Medical History - Social History Smoking Status: Never Smoker Chew tobacco use (# tins/day): No Frequency of alcohol use: None Drug Abuse: None Family History: Reviewed & Not Pertinent Patient has suicidal ideation: No Patient has homicidal ideation: No - Past Medical History Cardiac Medical History: Denies: Hx Congestive Heart Failure, Hx Heart Attack, Hx Hypertension Pulmonary Medical History: Denies: Hx Asthma, Hx Bronchitis, Hx COPD, Hx Pneumonia, Hx Tuberculosis Neurological Medical History: Denies: Hx Seizures Renal/ Medical History: Denies: Hx End Stage Renal Disease, Hx Kidney Stones, Hx Peritoneal Dialysis GI Medical History: Denies: Hx Cirrhosis, Hx Gastroesophageal Reflux Disease, Hx Ulcer Musculoskeltal Medical History: Denies Hx Arthritis, Denies Hx Multiple Sclerosis Psychiatric Medical History: Denies: Hx Bipolar Disorder, Hx Depression, Hx Schizophrenia - Immunizations Immunizations up to date: Yes Hx Diphtheria, Pertussis, Tetanus Vaccination: Yes Vertical Provider Document - CONSTITUTIONAL Agree With Documented VS: Yes Notes: PHYSICAL EXAM GENERAL: Alert, interacts well. HEAD: Normocephalic, atraumatic. EYES: Pupils equal, round, and reactive to light. Extraocular movements intact. ENT: Oral mucosa moist, tongue midline. NECK: Full range of motion. Supple. Trachea midline. LUNGS: Clear to auscultation bilaterally, no wheezes, rales, or rhonchi. No respiratory distress. HEART: Regular rate and rhythm. No murmurs, gallops, or rubs. ABDOMEN: Soft, nondistended, nontender. No guarding, rebound, or rigidity.. Bowel sounds present in all 4 quadrants. EXTREMITIES: Moves all 4 extremities spontaneously. No edema, radial and dorsalis pedis pulses 2/4 bilaterally. No cyanosis. NEUROLOGICAL: Alert and oriented x4. Normal speech. PSYCH: Normal affect, normal mood. SKIN: Warm, dry, normal turgor. No rashes or lesions noted. - INFECTION CONTROL TRAVEL OUTSIDE OF THE [place] IN LAST 30 DAYS: No - RESPIRATORY O2 Sat by Pulse Oximetry: 100 Course - Re-evaluation Re-evalutation: 09/16/17 18:14 Patient is a 26-year-old female who is hemodynamically stable, no acute distress and afebrile. No evidence of leukocytosis or anemia noted on CBC. Chemistry stable without evidence of electrolyte abnormalities, acute renal failure. Urine with trace leukoesterase but patient asymptomatic will not treat at this time. Beta-hCG is negative. Patient states that she right now feels fine and the only reason she was sent here today was at the behest of her employer. Will discharge her home with as needed Fioricet for her headache which she states has resolved. Patient does not have any focal neurologic deficits, nuchal rigidity, vital signs are within normal limits no papilledema. Patient is otherwise no acute distress and hemodynamically stable. Low index for suspicion of acute subarachnoid hemorrhage, meningitis or mass. Low suspicion for acute life- threatening etiology with intact neuro exam therefore no additional imaging or laboratory testing is indicated. Will discharge patient home with strict follow -up with PCP for blood pressure check within the next week. - Vital Signs Vital signs: Temp Pulse Resp BP Pulse Ox 98.9 F 93 16 123/73 100 09/16/17 16:09 09/16/17 16:09 09/16/17 16:09 09/16/17 16:09 09/16/17 16:09 - Laboratory Result Diagrams: 09/16/17 17:17 09/16/17 17:17 Laboratory results interpreted by me: 09/16/17 16:48 Urine Urobilinogen 4.0 H Ur Leukocyte Esterase TRACE H - EKG Interpretation by Me EKG shows normal: Sinus rhythm Rate: Normal Rhythm: NSR When compared to previous EKG there are: No significant change Discharge - Discharge Clinical Impression: Headache Qualifiers: Headache type: unspecified Headache chronicity pattern: episodic headache Intractability: intractable Qualified Code(s): R51 - Headache Condition: Good Disposition: HOME, SELF-CARE Additional Instructions: You have been seen in the Emergency Department (ED) for a headache. Please use Tylenol (acetaminophen) or Motrin (ibuprofen) as needed for symptoms, but only as written on the box. As we have discussed, please follow up with your primary care doctor as soon as possible regarding today's ED visit and your headache symptoms. Call your doctor or return to the ED if you have a worsening headache, sudden and severe headache, confusion, slurred speech, facial droop, weakness or numbness in any arm or leg, extreme fatigue, or other symptoms that concern you. Prescriptions: Butalb/Acetaminophen/Caffeine [Fioricet (50-325-40 mg) Tablet] 1 tab PO Q4HP PRN #15 tab PRN Reason: Forms: Return to Work Referrals: [facility] OWUSU MD [ACTIVE STAFF] - Follow up in 3-5 days
[2017-09-16 17:36] LABS: ABSOLUTE LYMPHOCYTES (AUTO) 1.6 10^3/uL (0.5-4.7); ABSOLUTE MONOCYTES (AUTO) 0.2 10^3/uL (0.1-1.4); ABSOLUTE NEUT (AUTO) 2.3 10^3/uL (1.7-8.2); BASOPHILS % (AUTO) 0.3 % (0-2); EOSINOPHILS % (AUTO) 0.4 % (0-6); HEMATOCRIT 35.9 % (36.0-47.0); HEMOGLOBIN 11.4 g/dL (12.0-15.5); LYMPHOCYTES % (AUTO) 38.5 % (13-45); MEAN CORPUSCULAR HEMOGLOBIN 22.6 pg (27.0-33.4); MEAN CORPUSCULAR HGB CONC 31.9 g/dL (32.0-36.0); MEAN CORPUSCULAR VOLUME 71 fl (80-97); MONOCYTES % (AUTO) 5.5 % (3-13); PLATELET COUNT 202 10^3/uL (150-450); RED BLOOD COUNT 5.06 10^6/uL (3.72-5.28); RED CELL DISTRIBUTION WIDTH 29.7 % (11.5-14.0); SEGMENTED NEUTROPHILS % (AUTO) 55.3 % (42-78); TOTAL CELLS COUNTED % (AUTO) 100 %; WHITE BLOOD COUNT 4.2 10^3/uL (4.0-10.5)
[2017-09-16 17:43] LABS: ANION GAP 7 (5-19); BLOOD UREA NITROGEN 9 mg/dL (7-20); CALCIUM 9.5 mg/dL (8.4-10.2); CARBON DIOXIDE 30 mmol/L (22-30); CHLORIDE 105 mmol/L (98-107); GLUCOSE 79 mg/dL (75-110); MAGNESIUM 1.9 mg/dL (1.6-2.3); POTASSIUM 3.8 mmol/L (3.6-5.0); SODIUM 141.5 mmol/L (137-145)
[2017-09-16 17:55] LABS: TOXIC GRANULATION 2+
[2017-09-16 17:56] LABS: ANISOCYTOSIS 4+; BURR CELLS 1+; OVALOCYTES 2+; PLATELET COMMENT ADEQUATE; PLATELET LARGE PRESENT; POIKILOCYTOSIS 3+; SCHISTOCYTES 2+; TARGET CELLS SLIGHT; TEAR DROP CELLS 1+
[2017-09-16 18:29] VITALS: BP 105/56
--- NOTE | 2017-09-17 08:50 | EKG REPORT ---
SEVERITY:- BORDERLINE ECG - SINUS RHYTHM BORDERLINE T ABNORMALITIES, INFERIOR LEADS : Confirmed by: Dioni Lion 17-Sep-2017 08:48:59
== END 2017-09-16 18:30 | disposition home or self-care (01) ==
LOC: ER 16:04
DX: R51 Headache (principal)
CPT/HCPCS: 36415; 80048; 81001; 81025; 83735; 85025; 93005; 93010; 99284

== ENCOUNTER 2017-12-08 09:25 | Emergency (ER) | payer OTHER ==
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
[2017-12-08 10:37] LABS: APPEARANCE,URINE SLIGHTLY-CLOUDY; BILIRUBIN,URINE NEGATIVE (NEGATIVE); COLOR,URINE STRAW; GLUCOSE, URINE NEGATIVE (NEGATIVE); KETONES,URINE NEGATIVE (NEGATIVE); LEUKOCYTE ESTERASE,URINE SMALL (NEGATIVE); NITRITE,URINE NEGATIVE (NEGATIVE); PROTEIN,URINE NEGATIVE (NEGATIVE); URINE SPECIFIC GRAVITY 1.004; UROBILINOGEN,URINE NEGATIVE mg/dL (<2.0)
[2017-12-08 10:51] VITALS: BP 124/59
== END 2017-12-08 10:56 | disposition home or self-care (01) ==
LOC: ER 09:25
DX: R10.30 Lower abdominal pain, unspecified (principal); V49.40XA Driver injured in collision with unspecified motor vehicles in traffic accident, initial encounter; Z91.040 Latex allergy status; Z91.041 Radiographic dye allergy status; Z91.018 Allergy to other foods
CPT/HCPCS: 81001; 81025; 99284

== ENCOUNTER 2017-12-16 06:38 | Emergency (ER) | payer OTHER ==
[2017-12-16] MEDS ORDERED: LORATADINE 10 MG TABLET PO ONE (07:37)
[2017-12-16] MEDS ORDERED: GUAIFENESIN/D-METHORPHAN (200-20 MG) SYRUP 10 ML PO ONE (07:38)
[2017-12-16 08:25] LABS: ABSOLUTE LYMPHOCYTES (AUTO) 0.7 10^3/uL (0.5-4.7); ABSOLUTE MONOCYTES (AUTO) 0.4 10^3/uL (0.1-1.4); ABSOLUTE NEUT (AUTO) 2.1 10^3/uL (1.7-8.2); BASOPHILS % (AUTO) 0.2 % (0-2); HEMATOCRIT 33.7 % (36.0-47.0); HEMOGLOBIN 10.8 g/dL (12.0-15.5); LYMPHOCYTES % (AUTO) 21.6 % (13-45); MEAN CORPUSCULAR HEMOGLOBIN 20.3 pg (27.0-33.4); MEAN CORPUSCULAR VOLUME 64 fl (80-97); MONOCYTES % (AUTO) 11.9 % (3-13); PLATELET COUNT 273 10^3/uL (150-450); RED BLOOD COUNT 5.29 10^6/uL (3.72-5.28); RED CELL DISTRIBUTION WIDTH 19.4 % (11.5-14.0); SEGMENTED NEUTROPHILS % (AUTO) 65.3 % (42-78); TOTAL CELLS COUNTED % (AUTO) 100 %; WHITE BLOOD COUNT 3.2 10^3/uL (4.0-10.5)
[2017-12-16 08:31] LABS: APPEARANCE,URINE CLEAR; BILIRUBIN,URINE NEGATIVE (NEGATIVE); COLOR,URINE YELLOW; GLUCOSE, URINE NEGATIVE (NEGATIVE); KETONES,URINE NEGATIVE (NEGATIVE); LEUKOCYTE ESTERASE,URINE MODERATE (NEGATIVE); NITRITE,URINE NEGATIVE (NEGATIVE); PROTEIN,URINE NEGATIVE (NEGATIVE); URINE SPECIFIC GRAVITY 1.005; UROBILINOGEN,URINE NEGATIVE mg/dL (<2.0)
[2017-12-16 08:43] LABS: ALANINE AMINOTRANSFERASE 24 U/L (9-52); ALKALINE PHOSPHATASE 36 U/L (38-126); ANION GAP 15 (5-19); ASPARTATE AMINO TRANSFERASE 17 U/L (14-36); BILIRUBIN,DIRECT 0.2 mg/dL (0.0-0.4); BILIRUBIN,TOTAL 0.3 mg/dL (0.2-1.3); BLOOD UREA NITROGEN 6 mg/dL (7-20); CALCIUM 9.5 mg/dL (8.4-10.2); CARBON DIOXIDE 24 mmol/L (22-30); CHLORIDE 103 mmol/L (98-107); GLUCOSE 85 mg/dL (75-110); POTASSIUM 3.9 mmol/L (3.6-5.0); SODIUM 142.2 mmol/L (137-145); TOTAL PROTEIN 6.8 g/dL (6.3-8.2)
[2017-12-16 08:59] LABS: ANISOCYTOSIS 2+; HYPOCHROMASIA 1+; OVALOCYTES 2+; PLATELET COMMENT ADEQUATE; POIKILOCYTOSIS 2+; TARGET CELLS SLIGHT
[2017-12-16] MEDS ORDERED: NITROFURANTOIN MONOHYD/M-CRYST 100 MG CAPSULE PO ONE (09:21)
--- NOTE | 2017-12-16 09:42 | RADIOLOGY REPORT (SQ) ---
EXAM DESCRIPTION: U/S OB TRANSVAGINAL W/O DOP COMPLETED DATE/TIME: 12/16/2017 9:28 am REASON FOR STUDY: cramping, spotting, COMPARISON: No previous this TECHNIQUE: Endovaginal static and realtime grayscale images acquired of the pelvis. Additional selec brittnee spectral and color Doppler images recorded. All images stored on PACs. bHCG: None available CLINICAL DATES: Most recent menses 10/29/2017 LIMITATIONS: None. FINDINGS: FETUS: Living intrauterine . ULTRASOUND EGA: 7 weeks 0 days ULTRASOUND PALOMO: 08/04/2018 CRL: Generates an estimated age of 7 weeks 0 days, 0.93 cm FHR: 131 beats per minute. SUBCHORIONIC BLEED: Yes SIZE OF BLEED: 1.5 x 1 cm in size UTERUS: No masses. No anomalies. Uterus is 11 x 7 x 6 cm in size CERVICAL LENGTH: 3.1 cm Closed. RIGHT ADNEXA: Normal ovary with normal vascular flow. Right ovary 3.7 x 2.2 x 2.1 cm in size. No adnexal free fluid. No adnexal masses. LEFT ADNEXA: Normal ovary with normal vascular flow. Left ovary 3.6 x 2.7 x 2.2 cm in size with a 2 cm corpus luteum cyst. No adnexal free fluid. No adnexal masses. FREE FLUID: Trace cul-de-sac fluid is present. OTHER: No other significant finding. IMPRESSION: LIVING INTRAUTERINE . EGA 7 weeks 0 days Small subchorionic hemorrhage Trimester of : First - 0 to 13 weeks. TECHNICAL DOCUMENTATION: JOB ID: [id number]- All Rights Reserved rev Reading location - IP/workstation name: [email or web address]
--- NOTE | 2017-12-16 09:51 | ER Document Report ---
ED GI/ - General Chief Complaint: Vag Bleeding, +preg <12wks Stated Complaint: VAGINAL BLEEDING Time Seen by Provider: 12/16/17 07:07 Mode of Arrival: Ambulatory Information source: Patient Notes: Patient is a 27-year-old female at approximately 7 weeks patient states that she had a miscarriage a year ago due to uterine fibroids and had who presents to the ER today for multiple complaints. Thyroidectomy since that time, in June 2017. Patient states she is approximately 7 weeks at this time and started having some spotting and some lower abdominal cramping on both sides of her abdomen equally this morning. Patient denies any passage of any blood clots, abnormal vaginal discharge, dysuria, fevers or chills. Patient also complains of approximately 4 days of sinus congestion, sinus headache, productive cough. Patient's primary care provider put her on amoxicillin 2 days ago but she states she does not think that that is helping. She denies any fevers with this. TRAVEL OUTSIDE OF THE [place] IN LAST 30 DAYS: No - Related Data Allergies/Adverse Reactions: coconut Allergy (Verified 12/08/17 09:25) latex Allergy (Verified 12/08/17 09:25) mushroom Allergy (Verified 12/08/17 09:25) IV contrast Allergy (Intermediate, Uncoded 12/08/17 09:25) Tachycardia Past Medical History - General Information source: Patient - Social History Smoking Status: Never Smoker Chew tobacco use (# tins/day): No Frequency of alcohol use: None Drug Abuse: None Family History: Reviewed & Not Pertinent Patient has suicidal ideation: No Patient has homicidal ideation: No - Past Medical History Cardiac Medical History: Denies: Hx Congestive Heart Failure, Hx Heart Attack, Hx Hypertension Pulmonary Medical History: Denies: Hx Asthma, Hx Bronchitis, Hx COPD, Hx Pneumonia, Hx Tuberculosis Neurological Medical History: Denies: Hx Seizures Renal/ Medical History: Denies: Hx End Stage Renal Disease, Hx Kidney Stones, Hx Peritoneal Dialysis GI Medical History: Denies: Hx Cirrhosis, Hx Gastroesophageal Reflux Disease, Hx Ulcer Musculoskeltal Medical History: Denies Hx Arthritis, Denies Hx Multiple Sclerosis Psychiatric Medical History: Denies: Hx Bipolar Disorder, Hx Depression, Hx Schizophrenia Past Surgical History: Reports: Hx Gynecologic Surgery - uterine fibroids removed - Immunizations Immunizations up to date: Yes Hx Diphtheria, Pertussis, Tetanus Vaccination: Yes Review of Systems - Review of Systems Constitutional: No symptoms reported EENT: See HPI Cardiovascular: No symptoms reported Respiratory: See HPI Gastrointestinal: No symptoms reported Genitourinary: No symptoms reported Female Genitourinary: See HPI Musculoskeletal: No symptoms reported Skin: No symptoms reported Hematologic/Lymphatic: No symptoms reported Neurological/Psychological: No symptoms reported Physical Exam - Vital signs Vitals: Temp Pulse Resp BP Pulse Ox 99.2 F 105 H 18 120/68 96 12/16/17 06:46 12/16/17 06:46 12/16/17 06:46 12/16/17 06:46 12/16/17 06:46 - Notes Notes: PHYSICAL EXAMINATION: GENERAL: Mildly ill-appearing, but in no acute distress. HEAD: Atraumatic, normocephalic. EYES: Pupils equal round and reactive to light, extraocular movements intact, sclera anicteric, conjunctiva are normal. ENT: ear canals without erythema or foreign body, TMs pearly arnold with good bony landmarks, nares with mucoid discharge, oropharynx clear without exudates. Moist mucous membranes. Maxillary and frontal sinuses nontender to palpation NECK: Normal range of motion, supple without lymphadenopathy LUNGS: Cough, otherwise CTAB and equal. No wheezes rales or rhonchi. HEART: Regular rate and rhythm without murmurs ABDOMEN: Soft, no tenderness. No guarding, no rebound BACK: no vertebral tenderness, normal ROM GI/: no CVA tenderness EXTREMITIES: Normal range of motion, no pitting edema. No cyanosis. NEUROLOGICAL: Cranial nerves grossly intact. Normal sensory/motor exams. PSYCH: Normal mood, normal affect. SKIN: Warm, Dry, normal turgor, no rashes or lesions noted Course - Re-evaluation Re-evalutation: 12/16/17 09:48 Patient's hemoglobin is 10.8, she does state she has a history of chronic anemia and is taking vitamins without iron. Patient states that she does not want to be taking an antibiotic for sinus congestion and she does not need one, she is afebrile with normal vital signs and has only had sinus congestion since 4 days ago. I did advise that she stop taking the amoxicillin at this time and reevaluate at the seven-day arnol. Patient is happy with this plan. Patient however does have 19 white blood cells and leukocytes on her urinalysis today, I will treat her with Macrobid. Ultrasound today reveals a normal 7 week 0 day gestation with a heart rate of 131 bpm. Patient does have a small subchorionic hemorrhage on ultrasound today. Patient to take Tylenol for pain. I will provide her with a prescription for Claritin and have advised that she can take Robitussin-DM for the cough which is safe in . - Vital Signs Vital signs: Temp Pulse Resp BP Pulse Ox 99.2 F 105 H 18 120/68 96 12/16/17 06:46 12/16/17 06:46 12/16/17 06:46 12/16/17 06:46 12/16/17 06:46 - Laboratory Result Diagrams: 12/16/17 07:55 12/16/17 07:55 Laboratory results interpreted by me: 12/16/17 12/16/17 12/16/17 07:55 07:55 08:01 WBC 3.2 L RBC 5.29 H Hgb 10.8 L Hct 33.7 L MCV 64 L MCH 20.3 L RDW 19.4 H BUN 6 L Alkaline Phosphatase 36 L Beta HCG, Quant 19958.00 H Urine Blood MODERATE H Ur Leukocyte Esterase MODERATE H Discharge - Discharge Clinical Impression: Viral upper respiratory illness Subchorionic hemorrhage in first trimester Qualifiers: Fetus number: single or unspecified fetus Qualified Code(s): O41.8X10 - Other specified disorders of amniotic fluid and membranes, first trimester, not applicable or unspecified; O46.8X1 - Other antepartum hemorrhage, first trimester; O46.8X1 - Other antepartum hemorrhage, first trimester UTI (urinary tract infection) Qualifiers: Urinary tract infection type: site unspecified Hematuria presence: with hematuria Qualified Code(s): N39.0 - Urinary tract infection, site not specified ; R31.9 - Hematuria, unspecified; R31.9 - Hematuria, unspecified Condition: Stable Disposition: HOME, SELF-CARE Instructions: Upper Respiratory Illness ([facility]) Additional Instructions: Return immediately for any new or worsening symptoms. Follow up with primary care provider, call tomorrow to make followup appointment. Please take Robitussin-DM for your symptoms, follow the instructions on the box. Please take Claritin I have prescribed daily until symptoms resolve. Please stop taking the vitamins that you are taking and start the prescription I have provided for you. Prescriptions: Loratadine [Claritin 10 mg Tablet] 10 mg PO DAILY #30 tablet Nitrofurantoin Monohyd/M-Cryst [Macrobid 100 mg Capsule] 100 mg PO BID #10 capsule 95/Iron Fum/Folic/Dha [ + Dha Combo Pack] 1 each PO DAILY #1 combo..pkg Referrals: LUC OWUSU MD [Primary Care Provider] - Follow up as needed [facility] [Provider Group] - Follow up as needed
[2017-12-16 10:22] VITALS: BP 120/59
== END 2017-12-16 10:15 | disposition home or self-care (01) ==
LOC: ER 06:38
DX: O20.8 Other hemorrhage in early pregnancy (principal); O23.41 Unspecified infection of urinary tract in pregnancy, first trimester; O99.519 Diseases of the respiratory system complicating pregnancy, unspecified trimester; J06.9 Acute upper respiratory infection, unspecified; O99.280 Endocrine, nutritional and metabolic diseases complicating pregnancy, unspecified trimester; E89.0 Postprocedural hypothyroidism; O26.891 Other specified pregnancy related conditions, first trimester; R10.30 Lower abdominal pain, unspecified; R09.81 Nasal congestion; R51 Headache; R05 Cough; Z3A.01 Less than 8 weeks gestation of pregnancy; Z87.59 Personal history of other complications of pregnancy, childbirth and the puerperium
CPT/HCPCS: 99284; 36415; 84702; 85025; 80053; 81001; 76817; J3490; J8499

== ENCOUNTER 2018-06-11 13:12 | Outpatient (CLI) | payer BC ==
[~2018-06-11 13:12] MED LIST changes: +FERRIC CARBOXYMALTOSE 750 MG in NORMAL SALINE 250 ML IV PRN; -FERUMOXYTOL (NON-ESRD) 510 MG/NS 100 ML IV PRN
[2018-06-11 13:55] VITALS: BP 114/63
== END 2018-06-11 14:21 | disposition home or self-care (01) ==
LOC: II 13:12 → 5TH 13:22 → II 14:21
PROVIDERS: ATTEND Internal Medicine
PROC: 3E033GC Introduction of Other Therapeutic Substance into Peripheral Vein, Percutaneous Approach (ICD-10-PCS; principal; 2018-06-11)
DX: D50.8 Other iron deficiency anemias (principal); K90.9 Intestinal malabsorption, unspecified
CPT/HCPCS: 96365; J7050; J1439

== ENCOUNTER 2018-06-18 13:02 | Outpatient (CLI) | payer BC ==
[2018-06-18 13:42] VITALS: BP 110/60
== END 2018-06-18 14:03 | disposition home or self-care (01) ==
LOC: II 13:02 → 5TH 13:15 → II 14:03
PROVIDERS: ATTEND Internal Medicine
PROC: 3E033GC Introduction of Other Therapeutic Substance into Peripheral Vein, Percutaneous Approach (ICD-10-PCS; principal; 2018-06-18)
DX: D50.8 Other iron deficiency anemias (principal); K90.9 Intestinal malabsorption, unspecified
CPT/HCPCS: 96365; J7050; J1439

== ENCOUNTER 2018-07-14 06:32 | Inpatient (IN) | payer BC ==
[2018-07-13 11:36] LABS: ABSOLUTE LYMPHOCYTES (AUTO) 1.2 10^3/uL (0.5-4.7); ABSOLUTE MONOCYTES (AUTO) 0.3 10^3/uL (0.1-1.4); ABSOLUTE NEUT (AUTO) 3.4 10^3/uL (1.7-8.2); BASOPHILS % (AUTO) 0.3 % (0-2); EOSINOPHILS % (AUTO) 0.3 % (0-6); HEMATOCRIT 38.4 % (36.0-47.0); HEMOGLOBIN 12.2 g/dL (12.0-15.5); LYMPHOCYTES % (AUTO) 24.2 % (13-45); MEAN CORPUSCULAR HEMOGLOBIN 22.5 pg (27.0-33.4); MEAN CORPUSCULAR HGB CONC 31.7 g/dL (32.0-36.0); MEAN CORPUSCULAR VOLUME 71 fl (80-97); MONOCYTES % (AUTO) 6.8 % (3-13); PLATELET COUNT 187 10^3/uL (150-450); RED BLOOD COUNT 5.41 10^6/uL (3.72-5.28); RED CELL DISTRIBUTION WIDTH 37.9 % (11.5-14.0); SEGMENTED NEUTROPHILS % (AUTO) 68.4 % (42-78); TOTAL CELLS COUNTED % (AUTO) 100 %
[2018-07-13 11:56] LABS: BILIRUBIN,URINE NEGATIVE (NEGATIVE); COLOR,URINE STRAW; GLUCOSE, URINE NEGATIVE (NEGATIVE); KETONES,URINE NEGATIVE (NEGATIVE); PROTEIN,URINE NEGATIVE (NEGATIVE); URINE SPECIFIC GRAVITY 1.003
[2018-07-13 11:57] LABS: APPEARANCE,URINE CLEAR; LEUKOCYTE ESTERASE,URINE NEGATIVE (NEGATIVE); NITRITE,URINE NEGATIVE (NEGATIVE); UROBILINOGEN,URINE NEGATIVE mg/dL (<2.0)
[2018-07-13 12:05] LABS: TOXIC GRANULATION 1+; TOXIC VACUOLATION PRESENT
[2018-07-13 12:06] LABS: ANISOCYTOSIS 2+; OVALOCYTES 2+; POIKILOCYTOSIS 2+; POLYCHROMASIA SLIGHT; TARGET CELLS SLIGHT; TEAR DROP CELLS 1+
[2018-07-13 12:07] LABS: PLATELET COMMENT ADEQUATE
[2018-07-13 12:17] LABS: URINE AMPHETAMINES SCREEN NEGATIVE; URINE BARBITURATES SCREEN NEGATIVE; URINE BENZODIAZEPINES SCREEN NEGATIVE; URINE COCAINE SCREEN NEGATIVE; URINE MARIJUANA (THC) SCREEN NEGATIVE; URINE METHADONE SCREEN NEGATIVE; URINE PHENCYCLIDINE SCREEN NEGATIVE
[~2018-07-14 06:32] MED LIST changes: +CEFAZOLIN 2 GM/D5W RTU 2 GM/50 ML RTUPB IV PRN; -FERRIC CARBOXYMALTOSE 750 MG in NORMAL SALINE 250 ML IV PRN; +LACTATED RINGERS 1000 ML IV PRN; +LIDOCAINE 0.5% INJ-PF (5 MG/ML) 50 ML SDV SUBCUT PRN; -NORMAL SALINE 250 ML IV PRN
[2018-07-14] MEDS ORDERED: FENTANYL CITRATE INJ/PF 100 MCG/2 ML AMPUL ONE (09:08)
[2018-07-14] MEDS ORDERED: OXYTOCIN/NORMAL SALINE 0 UNIT/0 ML RTUINJ ONE (09:08)
[2018-07-14] MEDS ORDERED: MIDAZOLAM 2 MG/2 ML INJ ONE (09:08)
[2018-07-14] MEDS ORDERED: EPHEDRINE SULFATE INJ 50 MG/1 ML AMPULE ONE (09:08)
[2018-07-14] MEDS ORDERED: ACETAMINOPHEN 1,000 MG/100 ML RTUPB IV ONE (09:09)
[2018-07-14] MEDS ORDERED: BUPIVACAINE HCL/DEX-WATER/PF 15 MG/2 ML AMPULE ONE (09:11)
[2018-07-14] MEDS ORDERED: LIDOCAINE 2% INJ-PF (20 MG/ML) 10 ML AMPUL ONE (09:34)
[2018-07-14] MEDS ORDERED: PROMETHAZINE HCL INJ 25 MG/1 ML VIAL IV PRN ×3 (09:53→12:09)
[2018-07-14] MEDS ORDERED: MEPERIDINE HCL/PF INJ 25 MG/1 ML DISP.SYRIN IV PRN (09:53)
[2018-07-14] MEDS ORDERED: FENTANYL CITRATE INJ/PF 100 MCG/2 ML AMPUL IV PRN ×3 (09:53)
[2018-07-14] MEDS ORDERED: DIPHENHYDRAMINE HCL 50 MG/ML VIAL IV PRN (09:53)
[2018-07-14] MEDS ORDERED: OXYCODONE-ACETAMINOPHEN 5-325 MG TABLET PO PRN ×4 (09:53→14:01)
[2018-07-14] MEDS ORDERED: MISOPROSTOL 0.2 MG TABLET ONE (10:00)
[2018-07-14] MEDS ORDERED: LIDOCAINE 1.5%/EPINEPHRINE INJ-PF 30 ML SDV ONE (10:40)
[2018-07-14] MEDS ORDERED: MEPERIDINE HCL/PF INJ 25 MG/1 ML DISP.SYRIN ONE (11:29)
--- NOTE | 2018-07-14 11:42 | Brief Operative Note ---
BRIEF OPERATIVE REPORT DATE OF SURGERY: 07/14/18 TIME OF SURGERY: 10:40 PREOPERATIVE DIAGNOSIS: IUP at 37+0ega, H/o multiple myomectomy, POSTOPERATIVE DIAGNOSIS: KAMILAH - delivered, posterior uterine serosal implants SURGEON: FOUZIA GORMAN FINDINGS: VMI delivered at 0954, Apgars 9/9, weight 2525g (5#9oz), normal bilateral tubes/ovaries, multiple defect in uterus which are very thin and correspond to prior myomectomy including defect in lower uterine segment. Thick approximately 1cm lesions x 2 noted in posterior uterine serosa in posterior cul de sac. IVF 700ml, UOP 300ml, QBL 1182ml COMPLICATIONS: none ESTIMATED BLOOD LOSS: 1182 TISSUE REMOVED OR ALTERED: placenta and cord, posterior uterine serosal implants biopsied TECHNICAL PROCEDURE: Primary Lower uterine segment
[2018-07-14] MEDS ORDERED: PROMETHAZINE HCL 25 MG SUPP.RECT PR PRN (12:09)
[2018-07-14] MEDS ORDERED: PROMETHAZINE HCL 25 MG TABLET PO PRN (12:09)
[2018-07-14] MEDS ORDERED: ACETAMINOPHEN WITH CODEINE #3 TABLET PO PRN (12:09)
[2018-07-14] MEDS ORDERED: BENZOCAINE/MENTHOL AEROSOL SPRAY 56 ML TOP PRN (12:09)
[2018-07-14] MEDS ORDERED: OXYTOCIN/NORMAL SALINE 20 UNIT/1,000 ML RTUINJ IV PRN (12:09)
[2018-07-14] MEDS ORDERED: MISOPROSTOL 0.2 MG TABLET PR PRN (12:09)
[2018-07-14] MEDS ORDERED: PSEUDOEPHEDRINE HCL 30 MG TABLET PO PRN (12:09)
[2018-07-14] MEDS ORDERED: DIBUCAINE 1% OINTMENT 28 GM TP PRN (12:09)
[2018-07-14] MEDS ORDERED: ACETAMINOPHEN 325 MG TABLET PO PRN (12:09)
[2018-07-14] MEDS ORDERED: MAGNESIUM HYDROXIDE SUSP 30 ML UDCUP PO PRN (12:09)
[2018-07-14] MEDS ORDERED: DIPHENHYDRAMINE HCL 25 MG CAPSULE PO PRN (12:09)
[2018-07-14] MEDS ORDERED: NA PHOS,M-B/NA PHOS,DI-BA (ADULT) 133 ML ENEMA PR PRN (12:09)
[2018-07-14] MEDS ORDERED: GLYCERIN/WITCH HAZEL LEAF 1 EACH MED..PAD TP PRN (12:09)
[2018-07-14] MEDS ORDERED: MEASLES,MUMPS&RUBELLA VACC/PF 0.5 ML VIAL SUBCUT PRN (12:09)
[2018-07-14] MEDS ORDERED: ZOLPIDEM TARTRATE 5 MG TABLET PO PRN (12:09)
[2018-07-14] MEDS ORDERED: HYDROMORPHONE HCL INJ/PF 2 MG/ML AMPULE ONE (12:43)
[2018-07-14] MEDS ORDERED: IBUPROFEN 800 MG TABLET PO SCH (14:00)
[2018-07-14] MEDS ORDERED: ACETAMINOPHEN 100 ML IV PRN (14:01)
[2018-07-14] MEDS ORDERED: HYDROMORPHONE HCL INJ/PF 2 MG/ML AMPULE IV PRN (14:01)
[2018-07-14] MEDS ORDERED: RINGERS SOLUTION,LACTATED 1,000 ML IV PRN (14:01)
[2018-07-14] MEDS ORDERED: KETOROLAC TROMETHAMINE INJ/PF 30 MG/1 ML SDV ONE (14:17)
[2018-07-14] MEDS ORDERED: OXYTOCIN/NORMAL SALINE 20 UNIT/1,000 ML RTUINJ ONE (14:28)
[2018-07-14] MEDS: KETOROLAC TROMETHAMINE INJ/PF 30 MG/1 ML SDV IV SCH ×2 (14:48→21:02)
--- NOTE | 2018-07-14 14:50 | PDOC DELIVERY SUMMARY ---
Delivery Summary - Maternal Hx : II Hx Para: 0 Hx # Term Pregnancies: 0 Hx # Pregnancies: 0 Hx Total # of Abortions (Sponateous & Elective): 1 Number of Living Children: 0 PALOMO: 08/04/18 Gestational Age: 37 Risk Factors: Other - h/o macrosomia Ruptured Membranes: AROM Time of Rupture: 09:54 Fluids: Clear - Delivery Labor: Not In Labor Presentation: Vertex Heart Rate Monitoring: Done Pre-Operatively Uterine Contraction Monitoring: External Support Person Present: Yes Location: OR : Scheduled Placenta: Within Normal Limits Placenta Description: normal Number of Vessels (Cord): 3 Nuchal Cord: No Delivery of Placenta Date: 07/14/18 Delivery of Placenta Time: 09:55 Delivery Quantitative Blood Loss (QBL): 1,182 - Medications Type of Anesthesia:: Spinal - Delivery Medications Delivery Meds: Cytotec 1000mcg Per Rectum/Vagina - Assess and Care Baby 1 Male Delivery of Infant Date: 07/14/18 Delivery of Infant Time: 09:54 at 1 minute: 9 at 5 minutes: 9 Preprinted Number On Band: [id number] Skin to Skin: No To Nursery At: 10:03 Mode of Transport: Bassinet Delivery Weight: 2,525 Delivery Length: 18.5 in - Delivery Personnel [employer] Laborer: DARIUS VAZQUEZ Nursery RN: RODOLFO NOGUERA Nursery RN: EZIO MOREAU RN: DANE VILLARREAL MD: FOUZIA GORMAN
--- NOTE | 2018-07-14 14:51 | Operative Report ---
Operative Report DATE OF SURGERY: 07/14/18 PREOPERATIVE DIAGNOSIS: IUP at 37+0ega, H/o multiple myomectomy, POSTOPERATIVE DIAGNOSIS: KAMILAH - delivered, posterior uterine serosal implants OPERATION: Primary Lower uterine segment SURGEON: FOUZIA GORMAN ANESTHESIA: Spinal TISSUE REMOVED OR ALTERED: placenta and cord, posterior uterine serosal implants biopsied COMPLICATIONS: none ESTIMATED BLOOD LOSS: 1182ml INTRAOPERATIVE FINDINGS: VMI delivered at 0954, Apgars 9/9, weight 2525g (5#9oz) , normal bilateral tubes/ovaries, multiple defect in uterus which are very thin and correspond to prior myomectomy including defect in lower uterine segment. Thick approximately 1cm lesions x 2 noted in posterior uterine serosa in posterior cul de sac. IVF 700ml, UOP 300ml, QBL 1182ml PROCEDURE: Anesthesia provider: [] Estimated blood loss: [] Urine output: [] IV fluids: [] Complications: [None] Specimens: [None] Findings: [] Indications: [] Procedure: The patient was taken to the operating room where spinal anesthesia was obtained and found to be adequate. She was then prepped and draped in the normal sterile fashion and placed in the dorsal supine position with a leftward tilt. A Pfannenstiel skin incision was then made and carried through to the underlying layers of the fascia with the scalpel. The fascia was incised in the midline and the incision extended laterally with the Lal scissors. The superior aspect of the fascial incision was then grasped with Yasmani clamps elevated and the underlying rectus muscles dissected off [bluntly]. Attention was then turned to the inferior aspect of the fascial incision which in a similar fashion was grasped, tented up with Vanessa clamps, and the rectus muscles dissected off [bluntly]. The rectus muscles were then in the midline and the peritoneum at the amount identified and entered [bluntly]. The peritoneal incision was then extended superiorly and inferiorly with good visualization of the bladder. The bladder blade was inserted and the vesicouterine peritoneum identified grasped with Monegasque pickups and entered sharply with the Metzenbaum scissors. This incision was then extended laterally with the Metzenbaum scissors and a bladder flap created digitally. The bladder blade was then reinserted and the lower uterine segment incised in a transverse fashion with the scalpel. The uterine incision was then extended bluntly. The bladder blade was removed and the infant's head was delivered from cephalic presentation atraumatically. The nose and mouth were suctioned and the cord doubly clamped and cut. And the infant was handed off to waiting pediatricians. The placenta was then delivered spontaneously and the uterus exteriorized and cleared of all clots and debris. The uterine incision was then repaired with 1- 0 Vicryl in a running locked fashion. A second layer of the same suture was used to obtain hemostasis via imbrication of the initial layer. The bladder flap was then repaired with 3-0 chromic in a running fashion. The uterus was returned to the patient's abdomen and Interceed was placed overlying the uterine incision to prevent adhesions. The gutters were cleared of all clots and debris. All operative sites were noted to be hemostatic. The fascia was reapproximated with 0 Vicryl in a running fashion from each lateral edge to the midline. The skin was closed with 3-0 Monocryl in a running subcuticular fashion with overlying Dermabond for additional dressing as well as wound closure. The patient tolerated the procedure well. Sponge lap needle and instrument counts are correct -2. 2 g of Ancef were given prior to skin incision. The patient was taken to the recovery area awake and in stable condition.
[2018-07-14] MEDS: FERROUS SULFATE 325 MG TABLET PO SCH (17:57)
[2018-07-14] MEDS: DOCUSATE SODIUM 100 MG CAPSULE PO SCH (17:58)
[2018-07-14] MEDS: FAMOTIDINE 20 MG TABLET PO SCH (21:03)
[2018-07-15] MEDS: KETOROLAC TROMETHAMINE INJ/PF 30 MG/1 ML SDV IV SCH ×2 (05:04→13:27)
[2018-07-15 08:01] LABS: HEMATOCRIT 31.9 % (36.0-47.0); MEAN CORPUSCULAR HEMOGLOBIN 22.7 pg (27.0-33.4); MEAN CORPUSCULAR HGB CONC 31.6 g/dL (32.0-36.0); MEAN CORPUSCULAR VOLUME 72 fl (80-97); PLATELET COUNT 155 10^3/uL (150-450); RED BLOOD COUNT 4.44 10^6/uL (3.72-5.28); RED CELL DISTRIBUTION WIDTH 36.8 % (11.5-14.0)
[2018-07-15 08:41] LABS: WHITE BLOOD COUNT 13.7 10^3/uL (4.0-10.5)
[2018-07-15 08:42] LABS: HEMOGLOBIN 10.1 g/dL (12.0-15.5)
[2018-07-15] MEDS: DOCUSATE SODIUM 100 MG CAPSULE PO SCH ×2 (09:04→17:56)
[2018-07-15] MEDS: FERROUS SULFATE 325 MG TABLET PO SCH ×2 (09:04→17:56)
[2018-07-15] MEDS: PRENATAL VITAMIN W DHA CAPSULE PO SCH (09:05)
[2018-07-15] MEDS: FAMOTIDINE 20 MG TABLET PO SCH ×2 (09:05→22:08)
[2018-07-15] MEDS: SIMETHICONE 80 MG TAB.CHEW PO PRN ×3 (09:05→22:05)
[2018-07-15] MEDS: SENNOSIDES/DOCUSATE 8.6-50 MG 1 EACH TABLET PO SCH (09:05)
[2018-07-15] MEDS: ACETAMINOPHEN WITH CODEINE #3 TABLET PO PRN ×3 (11:29→22:05)
--- NOTE | 2018-07-15 12:28 | PDOC PROGRESS REPORT ---
Subjective-OB Progress Note for:: 07/15/18 Subjective: Pt doing well, ambulatory. Reports light bleeding, voiding without difficulty, regular diet, no flatus yet. Physical Exam (OB) Vital Signs: Temp Pulse Resp BP Pulse Ox 98.3 F 113 H 16 117/68 98 07/15/18 11:47 07/15/18 11:47 07/15/18 11:47 07/15/18 11:47 07/15/18 11:47 Intake & Output 07/14/18 07/15/18 07/16/18 06:59 06:59 06:59 Intake Total 1475 Output Total 2605 400 Balance -1130 -400 Weight 73.2 kg - Dressing Removed: No - open to air Incision: Well Approximated Closure Type: Surgical Glue - Lochia Lochia Amount: Moderate 25-50 ml Lochia Color: Rubra/Red - Abdomen Description: Tender, Soft, Round Hernia Present: No Fundal Description: Firm, Midline Fundal Height: u/u - u/2 Objective-Diagnostic Laboratory: 07/15/18 07:23 07/15/18 07:23 WBC 13.7 H D RBC 4.44 Hgb 10.1 L D Hct 31.9 L MCV 72 L MCH 22.7 L MCHC 31.6 L RDW 36.8 H Plt Count 155 Assessment and Plan(PN) - Assessment and Plan (1) History of myomectomy Is this a current diagnosis for this admission?: Yes (2) S/P primary low transverse Is this a current diagnosis for this admission?: Yes (3) Anemia Qualifiers: Other causes of anemia: other cause, not classified Is this a current diagnosis for this admission?: Yes - Time Spent with Patient Time with patient: Less than 15 minutes Medications reviewed and adjusted accordingly: Yes - Disposition Anticipated Discharge: Home Within: within 24 hours
[2018-07-15] MEDS: IBUPROFEN 800 MG TABLET PO SCH (22:07)
[2018-07-16] MEDS: ACETAMINOPHEN WITH CODEINE #3 TABLET PO PRN ×3 (02:43→15:04)
[2018-07-16] MEDS: IBUPROFEN 800 MG TABLET PO SCH ×2 (05:42→13:51)
--- NOTE | 2018-07-16 10:22 | PDOC DISCHARGE SUMMARY ---
Final Diagnosis Discharge Date: 07/16/18 - Final Diagnosis (1) History of myomectomy Is this a current diagnosis for this admission?: Yes (2) S/P primary low transverse Is this a current diagnosis for this admission?: Yes Discharge Data - Discharge Medication Prescriptions: Acetaminophen with Codeine [Tylenol #3 Tablet] 2 each PO Q4HP PRN 7 Days #40 tablet PRN Reason: Ibuprofen [Motrin 800 mg Tablet] 800 mg PO Q8HP PRN #60 tablet PRN Reason: Home Medications: Acetaminophen with Codeine [Tylenol #3 Tablet] 2 each PO Q4HP PRN 7 Days #40 tablet 07/16/18 Docusate Sodium [Colace 100 mg Capsule] 100 mg PO BID capsule 07/16/18 Ibuprofen [Motrin 800 mg Tablet] 800 mg PO Q8HP PRN #60 tablet 07/16/18 Vit/Dha [ Multi + Dha Capsule] 1 cap PO DAILY capsule Reason(s) for Admission: Ceasarean Section-Primary Procedures: NST - Diagnosis Test Laboratory: Temp Pulse Resp BP Pulse Ox 98.0 F 82 15 108/52 L 99 07/16/18 08:40 07/16/18 08:40 07/16/18 08:40 07/16/18 08:40 07/16/18 08:40 07/13/18 07/13/18 07/15/18 10:49 11:02 07:23 RBC 5.41 H 4.44 Hgb 12.2 10.1 L D Hct 38.4 31.9 L Urine Opiates Screen NEGATIVE - Discharge information/Instructions Discharge Activity: Balance Activity w/Rest, No Lifting Over 10 Pounds, Pelvic Rest, Slowly Increase Activity, No tub bath, Walk Frequently Discharge Diet: Regular Disposition: HOME, SELF-CARE Follow up with: [facility] in: 1, Weeks
[2018-07-16 10:42] VITALS: BP 110/51
[2018-07-16] MEDS: FAMOTIDINE 20 MG TABLET PO SCH (11:00)
[2018-07-16] MEDS: PRENATAL VITAMIN W DHA CAPSULE PO SCH (11:00)
[2018-07-16] MEDS: FERROUS SULFATE 325 MG TABLET PO SCH (11:00)
[2018-07-16] MEDS: DOCUSATE SODIUM 100 MG CAPSULE PO SCH (11:00)
[2018-07-16] MEDS: SENNOSIDES/DOCUSATE 8.6-50 MG 1 EACH TABLET PO SCH (11:00)
[2018-07-16] MEDS ORDERED: CYANOCOBALAMIN (VITAMIN B-12) INJ 1000 MCG/1 ML VIAL IM ONE (14:00)
== END 2018-07-16 15:30 | disposition home or self-care (01) | DRG 788 ==
LOC: 2S 06:32
PROVIDERS: ADMIT Student in an Organized Health Care Education/Training Program; ATTEND Student in an Organized Health Care Education/Training Program
PROC: 10D00Z1 Extraction of Products of Conception, Low, Open Approach (ICD-10-PCS; principal; 2018-07-14 09:15)
DX: O34.13 Maternal care for benign tumor of corpus uteri, third trimester (principal); D25.2 Subserosal leiomyoma of uterus; O99.02 Anemia complicating childbirth; D57.3 Sickle-cell trait; Q51.818 Other congenital malformations of uterus; Z3A.37 37 weeks gestation of pregnancy; Z37.0 Single live birth
CPT/HCPCS: 1961; 36415; 59025; 80307; 81001; 85025; 85027; 86850; 86900; 86901; 86920; 86922; 88305; 94799; C1765; J0131; J1170; J1885; J2175; J2250; J2590; J3010; J3420; J3490; J7120

== ENCOUNTER 2020-05-18 08:13 | Outpatient (CLI) | payer OTHER ==
[2020-05-18] MEDS ORDERED: IRON DEXTRAN COMPLEX 25 MG in SYRINGE, DISPOSABLE, 1 EACH IV PRN (08:22)
[2020-05-18] MEDS ORDERED: IRON DEXTRAN COMPLEX 775 MG in NORMAL SALINE 500 ML IV PRN (08:23)
[2020-05-18] MEDS ORDERED: NORMAL SALINE 250 ML IV PRN (08:24)
[2020-05-18 08:51] VITALS: BP 122/58
== END 2020-05-18 13:45 | disposition home or self-care (01) ==
LOC: II 08:13 → 5TH 08:16 → II 13:45
PROVIDERS: ATTEND Internal Medicine
DX: D50.9 Iron deficiency anemia, unspecified (principal); K90.9 Intestinal malabsorption, unspecified
CPT/HCPCS: 96365; 96366; 96375; J1750; J7040; J3490

== ENCOUNTER 2020-05-25 08:13 | Outpatient (CLI) | payer OTHER ==
[~2020-05-25 08:13] MED LIST changes: -CEFAZOLIN 2 GM/D5W RTU 2 GM/50 ML RTUPB IV PRN; +IRON DEXTRAN COMPLEX 800 MG in NORMAL SALINE 500 ML IV PRN; -LACTATED RINGERS 1000 ML IV PRN; -LIDOCAINE 0.5% INJ-PF (5 MG/ML) 50 ML SDV SUBCUT PRN; +NORMAL SALINE 250 ML IV PRN
[2020-05-25 08:27] VITALS: BP 121/71
== END 2020-05-25 12:00 | disposition home or self-care (01) ==
LOC: II 08:13 → 5TH 08:14 → II 12:00
PROVIDERS: ATTEND Internal Medicine
DX: D50.9 Iron deficiency anemia, unspecified (principal); K90.9 Intestinal malabsorption, unspecified
CPT/HCPCS: 96365; 96366; J1750; J7040